=== PATIENT | male | born 1935 | race Caucasian/White ===

== ENCOUNTER 2020-07-05 13:46 | Emergency (ER) | payer MEDICARE, OTHER, SELFPAY ==
[2020-07-05] VITALS (7 sets, daily range): BP systolic 89–114; BP diastolic 43–67; PULSE 36–48; RESP 12–16; TEMP 36.3; O2SAT 98–100
--- NOTE | ~2020-07-05 | CT_ITS ---
EXAMINATION: CT brain wo con EXAM DATE: 07/05/2020 14:42 INDICATION: Shortness of breath, lightheadedness. Bradycardia. Left-sided hemiparesis, temporary. R esolved. TECHNIQUE: Spiral CT of the head was performed without contrast. Axial, coronal and sagittal images were reviewed. The dose-length product (DLP) for this examination was 605.33 mGy-cm. The exposure w as tailored according to patient size, and iterative reconstruction (ASIR) was used as additional dos e reduction technique. There is no prior study for comparison. FINDINGS: There is no acute intraparenchymal hemorrhage. No evidence of intraparenchymal brain mass lesion. No evidence of acute infarction. Please note that initial head CT has limited sensitivity f or small or acute infarctions. There is mild periventricular and subcortical hypodensity, nonspecific but probably related to small vessel ischemic disease. There is moderate prominence of the sulci a nd ventricles related to cerebral atrophy. There is intracranial carotid arteriosclerosis. There a re no extra-axial collections. There is no mass effect or midline shift. The orbits are unremarkabl e. Soft tissue is unremarkable. The visualized sinuses and mastoid air cells are well aerated. IMPRESSION: 1. No acute intracranial findings. 2. Chronic age related findings. Reviewed, dictated and finalized at location A.
--- NOTE | ~2020-07-05 | XR_ITS ---
EXAMINATION: XR chest 2V 07/05/2020 14:46 INDICATION: Slow heart rate. Shortness of breath. PROCEDURE: 2 view chest COMPARISON: No prior studies for comparison. FINDINGS: The lungs are clear. The cardiomediastinal silhouette is within normal limits. There are no pleural effusions. There is no pneumothorax suspected. There is scoliosis. IMPRESSION: 1: NO ACUTE CARDIOPULMONARY DISEASE. Reviewed, dictated and finalized at location B.
--- NOTE | 2020-07-05 14:03 | ED.WEAKNESS ---
HPI - Weakness General Chief complaint: Arrhythmia/Palpitations Stated complaint: light headed low heart rate Time Seen by Provider: 07/05/20 13:55 Source: patient and family Mode of arrival: ambulatory Limitations: no limitations History of Present Illness HPI Narrative: 84-year-old man comes in today complaining of left-sided weakness that was present on waking up this morning, but has since resolved. He noticed that he has also been weak overall, having a low heart rate, and short of breath. For a week before that he has been waking up sweaty. He denies chest pain or pressure, syncope, nausea, vomiting, abdominal pain, cough, or cold symptoms. He denies previous cardiac disease and has not had previous similar symptoms. MD Complaint: generalized weakness and focal weakness Onset (ago): hour(s) (Since this morning) Duration: constant Location: LUE and LLE Migration: none Severity: mild Exacerbating factors: exertion Associated symptoms: confusion and shortness of breath Related Data Home Medications Medication Instructions Recorded Confirmed simvastatin 20 mg PO DAILY 07/05/20 07/05/20 Allergies Allergy/AdvReac Type Severity Reaction Status Date / Time No Known Allergies Allergy Verified 07/05/20 14:12 Review of Systems Constitutional: Constitutional: Denies chills and Denies fever(s) Eyes: Eyes: Denies change in vision and Denies photophobia ENT: Denies dysphagia, Denies nasal congestion and Denies sore throat Cardiovascular: Cardiovascular: Denies chest pain and Denies radiating jaw, neck or arm pain Respiratory: Respiratory: Reports as per HPI, Denies cough, Reports dyspnea and Denies wheezing Gastrointestinal: Gastrointestinal: Denies abdominal pain, Denies nausea and Denies vomiting Genitourinary: Genitourinary: Denies dysuria and Denies urinary frequency Musculoskeletal: Musculoskeletal: Denies arthralgias and Denies joint swelling Integumentary/Breasts: Skin/Breast: Denies pruritus, Denies erythema and Denies rash Neurologic: Reports as per HPI, Denies vertigo, Reports dizziness and Denies syncope Hematologic/Lymphatic: Hematologic/Lymphatic: Denies easy bleeding and Denies easy bruising Allergic/Immunologic: Allergic/Immunologic: Denies lip swelling and Denies wheezing PMFSH Past Medical History Medical History Prostate cancer Surgical History Surgical History H/O knee surgery H/O prostatectomy Social History Social History (Updated 07/05/20 @ 14:18 by Tiburcio Carter MD) Smoking status: Never smoker Substance use: never Exam Const: General: healthy appearing, no acute distress and alert Other: Oriented to place, person, HENMT: Head: normal to inspection Ears: external ears normal, TM's normal bilaterally and EAC's normal Face and sinus: normal facial exam Mouth: Yes moist mucous membranes Throat: posterior oropharynx normal Eyes: Conjunctivae: conjunctivae normal Pupils: Equal, round and reactive pupils present EOM: EOMs intact bilaterally Neck: Neck: normal visual inspection and no lymphadenopathy Resp: Effort & Inspection: normal respiratory effort and not labored Auscultation: clear to auscultation bilaterally, no rales, no rhonchi and no wheezes Cardio: Rate: bradycardic Rhythm: regular rhythm Heart sounds: no murmurs Skin: General skin exam: normal color, no jaundice and no pallor Rashes: no rashes Neuro: General: patient oriented x3, moves all extremities, no focal motor deficits and CN's II-XI intact bilaterally Speech: normal speech Gait exam (Neuro): Normal gait present Extrem: General: normal to inspection and no clubbing, cyanosis or edema Psych: Appearance: grossly normal and well kempt Mental Status: mental status grossly normal Affect: normal affect Attitude: cooperative Thought content: Yes Normal thought content presen
--- NOTE | 2020-07-05 14:05 | ECG_ITS ---
Measurements Intervals [place] Rate: 39 P: VA: 0 QRS: 18 QRSD: 90 T: 8 QT: 486 QTc: 395 Interpretive Statements SINUS RHYTHM WITH COMPLETE HEART BLOCK AND NONCONDUCTED PAC SLOW JUNCTIONAL ESCAPE RHYTHM BASELINE WANDER- I, II, III, V1-V3 ABNORMAL ECG Electronically Signed On 07-05-2020 14:50:35 CDT by Williams Piña D.O.
[2020-07-05 14:26] LABS: Basophils Absolute Auto 0.03 K/mm3 (0.00-0.10); Basophils Percent Auto 0.5 % (0.0-1.0); Eosinophils Absolute Auto 0.17 K/mm3 (0.02-0.50); Eosinophils Percent Auto 2.9 % (1.0-6.0); Hematocrit 35.7 % (37.0-46.0); Hemoglobin 11.9 g/dL (12.4-15.3); Immature Granulocyte Absolute 0.02 K/mm3 (0.00-0.00); Immature Granulocyte Percent A 0.3 % (0.0-0.0); Lymphocytes Absolute Auto 1.41 K/mm3 (1.10-4.50); Lymphocytes Percent Auto 23.7 % (18.0-42.0); Mean Corpuscular HGB Conc 33.3 g/dL (32.0-36.0); Mean Corpuscular Hemoglobin 31.5 pg (27.0-31.0); Mean Corpuscular Volume 94.4 fL (78.0-102.0); Mean Platelet Volume 10.7 fl (8.7-11.0); Monocytes Absolute Auto 0.51 K/mm3 (0.10-0.90); Monocytes Percent Auto 8.6 % (2.0-11.0); Neutrophils Absolute Auto 3.8 K/mm3 (1.7-7.2); Platelet Count Result 158 K/mm3 (150-420); Red Blood Count 3.78 M/mm3 (4.70-6.10); Red Cell Distribution Width 13.2 % (11.6-14.4)
[2020-07-05 14:41] LABS: BNP 283 pg/mL (0-100)
[2020-07-05 14:49] LABS: INR 1.1; Prothrombin Time 11.4 Seconds (9.64-11.0)
[2020-07-05 14:54] LABS: Alanine Aminotransferase 16 U/L (16-63); Albumin Level 3.2 g/dL (3.4-5.0); Alkaline Phosphatase 100 U/L (46-116); Anion Gap 8 mmol/L (8-16); Aspartate Amino Transferase 15 U/L (15-37); Bilirubin,Total 0.6 mg/dL (0.00-1.00); Blood Urea Nitrogen 21 mg/dL (7-18); Calcium 8.9 mg/dL (8.5-10.1); Carbon Dioxide 26 mmol/L (21-32); Chloride 107 mmol/L (98-108); Estimated CRCL calculation 37 ml/min; Estimated Glomerular Filt Rate 47; Glucose 105 mg/dL (70-99); Magnesium 1.8 mg/dL (1.8-2.4); Osmolality Calculated 295 mOsm/kg (285-295); Potassium 4.1 mmol/L (3.5-5.1); Sodium 141 mmol/L (136-145); Thyroid Stimulating Hormone Reflex 2.38 u/IU/mL (0.36-3.74); Troponin I < 0.02 ng/mL (0.00-0.056)
[2020-07-05 14:56] LABS: D Dimer 1.65 mg/L (0.19-0.50)
[2020-07-05] MEDS: SODIUM CHLORIDE 0.9% IV 1,000 ML 999 ML IV CONT (15:15)
--- NOTE | 2020-07-05 16:49 | PC.NURSE ---
ANTONIO MANAGER BUSINESS CONTINUITY, ANDREW RN, CONTACTED AT 1510 FOR TRANSFER. MANAGER BUSINESS CONTINUITY BUSY AT THIS TIME, AWAITING CALL BACK. 1548 ANTONIO CALL BACK FOR PT INFORMATION. AWAITING CALL BACK FROM HOSPITALIST. 1640 ICU ROOM 12 PROVIDED. 1648 RN ATTEMPTED TO CALL REPORT. BED IS NOT READY, STILL A PT IN THAT ROOM, AND THEN NEEDS TO BE CLEANED. AWAITING CALL BACK.
[2020-07-05 17:36] LABS: Add Urine Microscopic? NO; Appearance Urine Clear (Clear); Bilirubin Urine Negative (Negative); Blood Urine Negative (Negative); Color Urine Yellow (Yellow); Glucose Urine UA Negative (Negative); Ketones Urine Negative (Negative); Leukocyte Esterase Ur Negative LEU/UL (Negative); Nitrate Urine Negative (Negative); Protein Urine Negative (Negative); Specific Grav Ur <= 1.005 (1.010-1.020); Urobilinogen Urine 0.2 mg/dL (0.2-1.0)
== END 2020-07-05 18:20 | disposition short-term general hospital (02) ==
PROVIDERS: Emergency Provider Emergency Medicine; PCP Internal Medicine
DX: I44.2 Atrioventricular block, complete (principal); N17.9 Acute kidney failure, unspecified; D64.9 Anemia, unspecified; R06.02 Shortness of breath
CPT/HCPCS: 36415; 70450; 71046; 80053; 81003; 83735; 83880; 84443; 84484; 85025; 85380; 85610; 85730; 93005; 96360; 99284; 99285; J7030

== ENCOUNTER 2020-07-06 08:30 | Inpatient (IN) | payer MEDICARE, OTHER, SELFPAY ==
[2020-07-05 19:00] VITALS: BMI 29.3
--- NOTE | 2020-07-05 19:00 | ADMGEN ---
This patient, Ludwig Dahl, was admitted to Intensive Care Unit-12. Patient/family oriented to hospital policies and general routines including ID bracelet, bed and alarms, visiting hours, pain management, procedures, bathroom and other care routines, personal items, smoking policy, room service/diet, and visiting hours. Valuables list has been completed. Information on how to activate the Rapid Response Team has been discussed. Patient/Family are encouraged to report perceived risks to care and to ask questions if they do not understand what they are told or what they should do.
[2020-07-05 20:49] VITALS: BP 135/70; PULSE 37; RESP 16; TEMP 37.1; O2SAT 100; O2SAT 98
--- NOTE | 2020-07-05 21:18 | PM.IMHP ---
H&P: HPI History of Present Illness Date/Time: 07/05/20 21:18 Chief complaint: Complete Heart Block Narrative: Date of service: 07/05/2020 Ludwig Dahl is a 84 year old male who is followed by Dr. Rubio. He went to the [place] emergency room today and was found to be in complete heart with heart rate in the 30s to 40s and subsequently transferred to [facility] for further evaluation and treatment. The patient has been previously healthy with no heart disease. He has been having problems with progressive SMITH especially walking up the basement steps for the past week or so. This morning he had some transient left-sided weakness on awakening but that resolved but he felt weak and went to the emergency room, where he was found to have a heart rate of 39, incomplete heart block. He reports feeling a little fuzzy headed today. His blood pressure was stable and he was not in any heart failure. He has been transferred to [facility] ICU. He has had some dizziness the past 2-3 months when he bends and stands but there has been no other dizziness or syncope, no chest pain. He was noted to have a mildly slow heart rate when he was last seen by his PCP and says his heart rate usually was in the 50s to 60s at home. He was treated for hypertension in the past but has not required any medications for 5 years. There is no diabetes, thyroid disease or treatment with beta-blockers. Normally he is very active with no exertional problems. He is ambidextrous. No history of clavicular fracture. Review of Systems Constitutional: Constitutional: Reports lethargy and Reports weakness Eyes: Eyes: Denies blurry vision ENT: Denies nasal congestion Cardiovascular: Cardiovascular: Denies chest pain, Reports diaphoresis (Noted more sweating at night.), Denies pedal edema and Reports lightheadedness Respiratory: Respiratory: Denies chest congestion, Denies cough, Reports dyspnea and Reports dyspnea on exertion Gastrointestinal: Gastrointestinal: Denies abdominal pain and Denies hematochezia Genitourinary: Genitourinary: Denies dysuria Musculoskeletal: Musculoskeletal: Denies back pain and Denies neck pain Integumentary/Breasts: Skin/Breast: Denies rash Neurologic: Reports confusion (Patient felt his thinking was a little fuzzy headed recently) Comments: Some memory problems in the past couple of years. Psychiatric: Psychiatric: Reports no additional psychiatric complaints PMFSH Past Medical History Medical History Hyperlipidemia Prostate cancer Surgical History Surgical History H/O knee surgery H/O prostatectomy Family History Family History Father Blood disease of some type of blood disease, not leukemia. 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 He lives with 2 dogs and some cats. He has a daughter, Tanja; his son was killed in a MVA when a teen. Smoking status: Never smoker Alcohol intake: never Substance use: never Gender identity (if verbalized by the patient): Male Sexual Orientation (if Verbalized by the Patient): Straight or Heterosexual Spiritual care concerns: No Meds Home Medications and Allergies Home Medications Medication Instructions Recorded Confirmed Type aspirin [Aspirin Low Dose] 81 mg PO DAILY 07/05/20 07/05/20 History leuprolide (4 month) [Eligard (4 30 mg SUBCUT ONCE 07/05/20 07/05/20 History month)] simvastatin 20 mg PO DAILY 07/05/20 07/05/20 History lisinopril 20 mg PO DAILY 07/06/20 07/06/20 History Allergies All
[2020-07-05 22:00] VITALS: BP 109/61; PULSE 36; RESP 16; O2SAT 100
[2020-07-06] VITALS (19 sets, daily range): BP systolic 108–157; BP diastolic 57–97; PULSE 35–68; RESP 15–22; TEMP 36.4–36.6; O2SAT 96–100
--- NOTE | ~2020-07-06 | XR_ITS ---
EXAMINATION: XR chest 1V portable DATE: 07/06/2020 15:35 INDICATION: Pacer placement. TECHNIQUE: A single frontal view of the chest was obtained. COMPARISON: Chest 2 views 07/05/2020 FINDINGS: Again seen is eventration of anterior right hemidiaphragm. There is mild atelectasis in the lower lung zones. No pleural effusion or pneumothorax. The heart size is normal. There is a left madhav st wall pacer with leads in the right atrium and right ventricle. IMPRESSION: 1. Mild atelectasis in the lower lung zones. Reviewed, dictated and finalized at location A.
--- NOTE | ~2020-07-06 | XR_ITS ---
XR chest 2V 07/07/2020 07:59 Indication: Postop pacemaker insertion Procedure: AP and lateral view of the chest Comparison: Comparison to multiple prior studies sequentially, with oldest reviewed study dated 07/05. Findings: Sequential pacemaker leads are present, position unchanged. Bibasilar atelectasis. No focal pneumonia, edema, pleural effusion or pneumothorax. Scoliosis. No acute osseous abnormality. Impression: 1: Bibasilar atelectasis. Reviewed, dictated and finalized at location B. Impression: 1: Bibasilar atelectasis.
[2020-07-06 04:54] LABS: Basophils Absolute Auto 0.1 K/mm3 (0.0-0.1); Basophils Percent Auto 0.9 % (0.2-1.2); Eosinophils Absolute Auto 0.2 K/mm3 (0-0.3); Eosinophils Percent Auto 4.2 % (0-4.4); Hematocrit 34.4 % (42.0-52.0); Hemoglobin 11.6 g/dL (14.0-18.0); Immature Granulocyte Absolute 0.01 K/mm3 (0.00-0.031); Immature Granulocyte Percent A 0.2 % (0-0.5); Lymphocytes Absolute Auto 1.69 K/mm3 (0.9-3.2); Lymphocytes Percent Auto 31.1 % (18.3-44.2); Mean Corpuscular HGB Conc 33.7 g/dl (32-36); Mean Corpuscular Hemoglobin 31.1 pg (26-34); Mean Corpuscular Volume 92.2 fl (80-100); Mean Platelet Volume 10.7 fl (7.4-10.4); Monocytes Absolute Auto 0.5 K/mm3 (0.1-0.6); Monocytes Percent Auto 8.5 % (2.6-8.5); Neutrophils Percent Auto 55.1 % (45.5-73.1); Platelet Count Result 146 k/mm3 (150-375); Red Blood Count 3.73 M/mm3 (4.6-6.20); Red Cell Distribution Width 13.3 % (11.5-14.5); White Blood Count 5.4 K/mm3 (4.5-10.0)
[2020-07-06 05:07] LABS: INR 1.2; Prothrombin Time 14.8 Seconds (11.1-14.7)
[2020-07-06 05:14] LABS: Anion Gap 4 mmol/L (8-16); Blood Urea Nitrogen 17 mg/dL (9-20); Calcium 8.6 mg/dL (8.4-10.2); Carbon Dioxide 23 mmol/L (22-30); Chloride 110 mmol/L (98-107); Estimated CRCL calculation 39 ml/min; Estimated Glomerular Filt Rate 58; Glucose 98 mg/dL (75-110); Phosphorus 3.7 mg/dL (2.5-4.5); Potassium 3.9 mmol/L (3.4-5.0); Sodium 137 mmol/L (137-145)
[2020-07-06 05:15] LABS: Partial Thromboplastin Time 28.8 SECONDS (22.3-36.8)
[2020-07-06 06:03] LABS: T4 Thyroxine 9.79 ug/dL (5.53-11.0)
--- NOTE | 2020-07-06 08:00 | ECHO_ITS ---
Patient Info Name: Ludwig Dahl Age: 84 years : 1935 Gender: Male Ht: 67 in Wt: 187 lbs BSA: 2.03 m2 HR: 43 bpm BP: 112 / 71 mmHg Heart Rhythm: Bradycardia Technical Quality: Good Exam Date: 07/06/2020 7:49 AM Exam Location: [facility] Patient Status: Inpatient Admit Date: 07/05/2020 Staff Ordering Physician: Yoel Hogue MD [place] Technician: Vasu Granados, MANDA, RT Attending Provider: Teresa Barry MD Referring Physician: Mykel GRAHAM; Exam Type: CA echo dop color flow w con Study Info Indications I45.9 - Conduction disorder, unspecified Complete two-dimensional, color flow and Doppler transthoracic echocardiogram is performed with contrast to opacify the left ventricle and to improve the deliniation of the left ventricle endocardial borders. Summary 1. The left ventricle is of normal size and thickness with good contractility of all segments with no segmental wall motion abnormalities. The ejection fraction is 60-65%. Diastolic function appears normal. 2. Left atrial chamber dimension is mildly enlarged. 3. There is mild mitral valve regurgitation. 4. Unable to determine pulmonary pressure. 5. There is mild tricuspid valve regurgitation. 6. Bradycardic rhythm. Left Ventricle Left ventricular chamber dimension is normal. Left ventricular systolic function is normal, estimated at 60-65%. There is no increased left ventricular wall thickness. Left ventricular septal wall motion is normal. The left ventricular diastolic function is normal. Right Ventricle Right ventricular chamber dimension is normal. Right ventricular systolic function is normal. Left Atria Left atrial chamber dimension is mildly enlarged. Right Atria Right atrial chamber dimension is normal. Aortic Valve The aortic valve is trileaflet. There is no aortic valve sclerosis. There is no aortic valve stenosis. There is no aortic valve regurgitation. Pulmonic Valve The pulmonic valve is normal. There is no pulmonic valve stenosis. There is trace pulmonic regurgitation. Mitral Valve The mitral valve has normal leaflets. There is no mitral valve stenosis. There is mild mitral valve regurgitation. Tricuspid Valve The tricuspid valve leaflets are normal. There is no significant tricuspid valve stenosis. There is mild tricuspid valve regurgitation. No pulmonary hypertension, estimated pulmonary arterial systolic pressure is Empty. Pericardium/Pleural The pericardium appears normal. There is no pericardial effusion. Inferior Vena Cava Not well visualized inferior vena cava with >50% collapse upon inspiration consistent with Empty right atrial pressure, Empty. Aorta The aortic root size at the sinus of Valsalva is normal. The prox ascending aorta size is normal. Left Ventricular Outflow Tract Name Value Normal LVOT 2D LVOT Diameter 2.12 cm LVOT Doppler LVOT Peak Gradient 4 mmHg LVOT Mean Gradient 1 mmHg LVOT VTI 22.27 cm LVOT VTI/AV VTI Ratio 0.86
[2020-07-06] MEDS: PERFLUTREN LIPID MICROSPHERES 1.5 ML VIAL DILUTED TO 10 ML TOTAL VOLUME IV PUSH (08:40)
[2020-07-06] MEDS: ASPIRIN 81 MG ENTERIC TABLET PO (09:12)
[2020-07-06] MEDS: SIMVASTATIN 20 MG TABLET PO (09:12)
--- NOTE | 2020-07-06 10:39 | WPDCNINT ---
Assessment and Plan Assessment and plan (1) CHB (complete heart block): Code(s): I44.2 - Atrioventricular block, complete Status: Inactive Assessment and Plan: blood pressure adequate and patient asymptomatic at this time EKG reviewed. troponin negative. thyroid function is normal. And not on any beta-patrick or calcium channel patrick echocardiogram done this morning patient will be going for permanent pacemaker placement continue ICU telemetry monitoring until then NPO (2) Hyperlipidemia: Code(s): E78.5 - Hyperlipidemia, unspecified Status: Acute Assessment and Plan: continue simvastatin (3) DVT prophylaxis: Code(s): Z29.9 - Encounter for prophylactic measures, unspecified Status: Acute Assessment and Plan: SCDs [place] Consult Note Consult date: 07/06/20 Time Seen: 07:00 HPI: Ludwig Dahl is a 84 year old male who presented yesterday to ER with chief complaint of shortness of breath, weakness. Patient yesterday and noticed after cleaning at his home that he was weak in his left lower extremity which only lasted few seconds after that he had mild headache and felt weak all over his body. He noticed shortness of breath while climbing stairs moving around the eyes. He went to ED but but the symptoms had resolved by then apart from the weakness and dyspnea on exertion. In ER he was found to be in complete heart block with adequate blood pressure. Patient was transferred to [facility] for further management. he did notice that his heart rate was in 40s few weeks ago but he did not had any complaints hence did not seek any medical attention for it. Patient denied any chest pain, syncope, loss of conscious, paresthesias. He denies any weakness in any particular arm or leg at this time. No change in sensation of smell or taste recently. No fever. Patient denies fever, chest pain, shortness of breath, cough, nausea vomiting, abdominal pain, diarrhea, headache or constipation. No hematochezia or melena. Review of system is positive for chronic neck pain for which he does not take any pain medication but mostly does massage and heart water shower. Review of Systems Review of Systems: All systems reviewed & are unremarkable except as noted in HPI and below (HPI) PMFSH Past Medical History Medical History Hyperlipidemia Prostate cancer Surgical History Surgical History H/O knee surgery H/O prostatectomy Family History Family History Father Blood disease of some type of blood disease, not leukemia. 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 He lives with 2 dogs and some cats. Smoking status: Never smoker Alcohol intake: never Substance use: never Gender identity (if verbalized by the patient): Male Sexual Orientation (if Verbalized by the Patient): Straight or Heterosexual Spiritual care concerns: No Meds Home Medications and Allergies Home Medications Medication Instructions Recorded Confirmed Type aspirin [Aspirin Low Dose] 81 mg PO DAILY 07/05/20 07/05/20 History leuprolide (4 month) [Eligard (4 30 mg SUBCUT ONCE 07/05/20 07/05/20 History month)] simvastatin 20 mg PO DAILY 07/05/20 07/05/20 History Allergies Allergy/AdvReac Type Severity Reaction Status Date / Time No Known Allergies Allergy Verified 07/05/20 14:12 Vital Signs Vital Signs - 24 hr 07/05/20 20:49 07/05/20 22:00 07/06/20 00:00 Temperature 37.1 C Pulse Rate 37 L 36 L 36 L Re
--- NOTE | 2020-07-06 12:00 | WPDMODSED ---
Moderate Sedation Note-Pt Data Patient Data Diagnosis: Symptomatic complete heart block Present Complaint: SMITH secondary to complete heart block and bradycardia Procedure to be performed/Plan: Venogram Conscious sedation Placement of a permanent dual-chamber pacemaker Allergies Allergy/AdvReac Type Severity Reaction Status Date / Time No Known Allergies Allergy Verified 07/05/20 14:12 Home Medications Medication Instructions Recorded Confirmed Type aspirin [Aspirin Low Dose] 81 mg PO DAILY 07/05/20 07/05/20 History leuprolide (4 month) [Eligard (4 30 mg SUBCUT ONCE 07/05/20 07/05/20 History month)] simvastatin 20 mg PO DAILY 07/05/20 07/05/20 History lisinopril 20 mg PO DAILY 07/06/20 07/06/20 History Current Medications: Active Medications Aspirin (Aspirin Ec) 81 mg PO [facility] Last Admin: 07/06/20 09:12 Dose: 81 mg Documented by: Cefazolin Sodium (Ancef 1 Gm/D5w 50 Ml Pm) 1 gm in 50 mls @ 100 mls/hr IVPB ONCE ONE Stop: 07/06/20 12:59 Simvastatin (Zocor) 20 mg PO [facility] Last Admin: 07/06/20 09:12 Dose: 20 mg Documented by: Sedation/Anesthesia: No previous sedation/anesthesia problems (including family history). [facility] Past Medical History Medical History Hyperlipidemia Prostate cancer Surgical History Surgical History H/O knee surgery H/O prostatectomy Family History Family History Father Blood disease of some type of blood disease, not leukemia. 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 He lives with 2 dogs and some cats. He has a daughter, Tanja; his son was killed in a MVA when a teen. Smoking status: Never smoker Alcohol intake: never Substance use: never Gender identity (if verbalized by the patient): Male Sexual Orientation (if Verbalized by the Patient): Straight or Heterosexual Spiritual care concerns: No Mod Sed Physical Exam Physical Exam Pre Procedural Exam: Normal: Appearance, Eyes, Ears, Nose, Neck, Throat, Airway, Lungs, Heart Size, Heart Rhythm, Neuro Exam, Abdomen, Liver, Extremities and Skin (Skin over pectoral areas intact) and Variation: Heart Rate (bradycardic) Hours since solid foods: 12 Hours since liquid intake: 12 Internal Medicine - PN: Obj Da Vital Signs Vital Signs: Vital Signs - 24 hr 07/05/20 20:49 07/05/20 22:00 07/06/20 00:00 Temperature 98.7 F Pulse Rate 37 L 36 L 36 L Respiratory Rate 16 16 17 Blood Pressure 135/70 109/61 119/74 Pulse Oximetry 98 100 97 07/06/20 02:00 07/06/20 04:00 07/06/20 08:00 Temperature 97.8 F 97.6 F Pulse Rate 36 L 35 L 40 L Respiratory Rate 15 16 22 H Blood Pressure 113/68 112/71 130/73 Pulse Oximetry 99 100 98 07/06/20 10:00 Temperature Pulse Rate 36 L Respiratory Rate 20 Blood Pressure 108/97 H Pulse Oximetry 99 Meds/Results Medications: Active Medications Generic Name Dose Route Start Last Admin Trade Name Eleazar PRN Reason Stop Dose Admin Aspirin 81 mg 07/06/20 09:00 07/06/20 09:12 Aspirin Ec PO 81 mg QAM ANUJA Administration Cefazolin Sodium 1 gm in 50 mls @ 100 mls/hr 07/06/20 12:30 Ancef 1 Gm/D5w 50 Ml Pm IVPB 07/06/20 12:59 ONCE ONE Simvastatin 20 mg 07/06/20 09:00 07/06/20 09:12 Zocor PO 20 mg QAM ANUJA Administration Labs CBC & Chem 7: 07/06/20 04:47 07/06/20 04:47 Labs: Laboratory Results - last 24 hr 07/06/20 07/06/20 07/06/20 04:45 04:47 04:47 WBC 5.4 RBC 3.73 L Hgb 11.6 L Hct 34.4 L MCV 92.2 MCH 31.1 MCH
--- NOTE | 2020-07-06 12:03 | WPDHPUPDATE1 ---
History and Physical Update Update Date/Time: 07/06/20 12:03 History and Physical has been reviewed, including an updated exam of the patient. There are NO changes in the patient's condition. Risks, benefits, and alternatives have been discussed and questions answered. Patient agrees to proceed with procedure.
--- NOTE | 2020-07-06 15:13 | PM.OP ---
Procedure Note - Brief Procedure Note - Brief Date of procedure: 07/06/20 Pre-op diagnosis: Complete Heart Block Symptomatic complete heart Post-op diagnosis: same Procedure performed: conscious sedation Venogram Placement of a permanent dual-chamber transvenous pacemaker Description of procedure: uneventful implant of a dual-chamber pacemaker Anesthesia: local ( with conscious sedation) Surgeon: Teresa Barry MD
--- NOTE | 2020-07-06 15:14 | PM.PROC ---
Procedure Note - Detailed Date of procedure: 07/06/20 Pre-op diagnosis: Complete Heart Block Post-op diagnosis: same Description of procedure: PROCEDURE PERFORMED: Conscious sedation Venogram Placement of a permanent dual-chamber pacemaker SITE: Left prepectoral area MEDICATIONS GIVEN IN SCIENTIFIC EDITOR: Ancef 1 gram IV piggyback CONSCIOUS SEDATION: Assessment: The patient has no history of anesthesia problems. The patient's oropharynx is clear. The patient was deemed to be a good candidate for conscious sedation. The patient had continuous hemodynamic monitoring during the procedure. Start time: 1404 Completion time: 1502 Total conscious sedation time: 58 minutes Medications: Versed 2 mg, fentanyl 50 mcg IV push Trained observer: Jamison Frank RN Outcome: The patient tolerated the procedure well with no complications. PROCEDURE: After informed consent , the patient was brought to the laboratory manager and the left prepectoral area was prepped and draped in usual fashion . The patient received preop antibiotic and conscious sedation . A venogram was performed showing the left subclavian vein anatomy and that it was patent. The left prepectoral area was anesthetized with lidocaine . Next a skin incision was made and carried down to the prepectoral fascia. Hemostasis was obtained using electrocautery . The pacer pocket was formed. The left subclavian vein was easily accessed with the micropuncture technique and a wire was passed into the superior vena cava. A second wire was passed in the same fashion. Both wires were replaced with long wires which were passed into the inferior vena cava using the Seldinger technique. A 7 Moroccan Moroccan safety sheath was passed over the lateral wire, the wire withdrawn, and the right ventricular lead was passed into the inferior vena cava under fluoroscopic guidance . The lead was then prolapsed through the tricuspid valve and advanced into the right ventricular apex. When suitable sensing and pacing thresholds were obtained, it was screwed into place. No extra cardiac stimulation was obtained using 10 volts. The sheath was withdrawn. Next, another 7 Moroccan safety sheath was passed over the more medial wire, the wire withdrawn, and the right atrial lead was passed into the inferior vena cava under fluoroscopic guidance. Right atrial lead was then pulled back to the level of the right atrium and manipulated into the right atrial appendage . When suitable sensing and pacing thresholds were obtained , it was screwed into place . No extra cardiac stimulation was obtained using 10 volts. The sheath was withdrawn. Both leads were secured to the prepectoral fascia using 2-0 silk over their respective sleeves. The pocket was cleansed with antibiotic containing solution . The pulse generator was introduced into the operative field, and both leads were secured into the generator . A gentle tug showed the leads were securely fastened. The device was introduced into the pocket. The subcutaneous tissues were closed in a double layer fashion with interrupted sutures, using 2-0 Vicryl suture , and the skin was closed in a continuous fashion using 4-0 Vicryl suture in a continuous fashion. The area was cleansed, and an Aquacel dressing was applied . The patient tolerated the procedure well with no complications. PACEMAKER INFORMATION: Pulse generator: Medtronic Lily XT DR MRI SureScan model # [id number] Serial # [id number] Right atrial lead: Medtronic 5076-52, Serial # [id number] Right ventricular lead: Medtronic 5076-58, Serial # [id number] MEASURED DATA: Right atrial:P wave sensing 2.8 mV, impedance 380 Ohms, threshold 0.75 V at 0.4 msec Right ventricular lead: R wave sensing 8.1 mV, impedance 722 Ohms, threshold 0.5 V at 0.4 msec. PROGRAMMING; [id number]
--- NOTE | 2020-07-06 15:16 | ECG_ITS ---
Measurements Intervals [place] Rate: 61 P: 241 WV: 173 QRS: -68 QRSD: 181 T: 82 QT: 490 QTc: 497 Interpretive Statements ELECTRONIC ATRIAL PACEMAKER WITH INHIBITION ELECTRONIC VENTRICULAR PACEMAKER NO FURTHER INTERPRETATION IS POSSIBLE ATYPICAL ECG Electronically Signed On 07-06-2020 15:46:04 CDT by Williams Piña D.O.
--- NOTE | 2020-07-06 15:20 | SUR.PHASEII ---
BEGIN PHASE II RECOVERY. RETURNS TO [facility]GRAM[facility] 5 VIA BED S/P PPM INSERTION W/ DR. BENDER. AWAKE AND ALERT ON ARRIVAL. DENIES PAIN OR SOB. MONITOR AV PACED. AQUALCELL DRESSING TO L. UPPER CHEST C/D/I. SITE WITHOUT EDEMA, REDNESS OR TENDERNESS. NO DRAINAGE NOTED. L. RADIAL PULSE STRONG; REPORTS SENSATION AND MOVEMENT L. HAND WNL. POST PPM EKG COMPLETED. REVIEWED MOVEMENT LIMITATION TO L. ARM POST PPM AND BEDREST ORDER. VOICED UNDERSTANDING. VSS. POST PCXR ORDERED. WILL CONTINUE TO MONITOR.
--- NOTE | 2020-07-06 15:52 | PC.NURSE ---
1545-Report called to Lauren VANCE in [facility]. Patient IMU status and will stay in [facility] Room 5 as an overflow. Family at the bedside and aware of the transfer.
--- NOTE | 2020-07-06 16:20 | SUR.PHASEII ---
END PHASE II RECOVERY. PT. NOW TO REMAIN IN [facility] 5 IMU OF. INSTEAD OF RETURNING TO ICU 12 IMU OF. PT AND DAUGHTER INFORMED OF SUCH AND REPORT OBTAINED FROM DIANE Ayers RN. IN ICU. SLING IS NOW ON L. ARM AND ELBOW SUPPORTED BY PILLOW. DENIES PAIN TO L UPPER CHEST. NO CHANGE IN L. UPPER CHEST DRESSING SITE. MONITOR AV PACED. VSS. WILL CONTINUE TO MONITOR. SEE PCS FOR FURTHER DOCUMENTATION.
--- NOTE | 2020-07-06 16:21 | PC.NURSE ---
RETURNS TO IMU STATUS IN [facility] COACH 5 AT THIS TIME. PHASE II RECOVERY POST PPM INSERTION COMPLETE.
[2020-07-06] MEDS: ceFAZolin 2 GM/D5W 50 ML 2 GM/50 ML BAG IVPB (20:50)
[2020-07-07] VITALS: BP 131/80; PULSE 60; RESP 20; TEMP 36.3; O2SAT 100
[2020-07-07] MEDS: traMADol HCL (*CRX) 50 MG TABLET PO (00:19)
[2020-07-07 02:00] VITALS: PULSE 60
[2020-07-07 04:00] VITALS: BP 148/92; PULSE 60; PULSE 63; RESP 17; TEMP 36.1; O2SAT 98
[2020-07-07] MEDS: ceFAZolin 2 GM/D5W 50 ML 2 GM/50 ML BAG IVPB (04:25)
[2020-07-07 05:49] VITALS: PULSE 62
[2020-07-07 08:00] VITALS: BP 135/82; PULSE 61; RESP 14; O2SAT 98
[2020-07-07] MEDS: lisinopriL 20 MG TABLET PO (08:31)
[2020-07-07] MEDS: SIMVASTATIN 20 MG TABLET PO (08:31)
[2020-07-07] MEDS: ASPIRIN 81 MG ENTERIC TABLET PO (08:31)
[2020-07-07 10:00] VITALS: PULSE 60
--- NOTE | 2020-07-07 10:58 | PM.DS ---
DS: Admitting Diagnosis Admitting Diagnosis Admitting Diagnosis: Complete Heart Block DS: Discharge Diagnosis Discharge Diagnosis (1) CHB (complete heart block): Code(s): I44.2 - Atrioventricular block, complete Status: Inactive Assessment and Plan: Status post Medtronic dual-chamber pacemaker 07/06/2020. Pacemaker is functioning normally on interrogation this morning. Unable to elicit any hiccups with testing. Chest x-ray without pneumothorax. No chest discomfort, shortness of breath lightheadedness or dizziness. (2) Acute renal failure: Qualifiers: Acute renal failure type: unspecified Qualified Code(s): N17.9 - Acute kidney failure, unspecified Code(s): N17.9 - Acute kidney failure, unspecified Status: Inactive Assessment and Plan: Creatinine a little elevated perhaps due to poor cardiac output. Creatinine 1.4 BUN 21 at [place]. Ceatinine1.2 BUN 17 07/06 DS: Summary Hospital Course Reason for hospitalization: Complete heart block Hospital Course: 84 year old male who went to the [place] emergency room on 07/05/2020 for evaluation of transient left-sided weakness that resolved, feeling of weakness and was found to be in complete heart with heart rate in the 30s to 40s. He was subsequently transferred to [facility] for further evaluation and treatment. He was hemodynamically stable. Echocardiogram 07/06/2020:The left ventricle is of normal size and thickness with good contractility of all segments with no segmental wall motion abnormalities. The ejection fraction is 60-65%. Diastolic function appears normal. Left atrial chamber dimension is mildly enlarged. There is mild mitral valve regurgitation. Unable to determine pulmonary pressure. There is mild tricuspid valve regurgitation. He had a Medtronic dual chamber pacemaker placed by Dr Barry. No pneumothorax on postoperative chest x-ray. He was monitored overnight. There was some concern due to his frequent hiccups however on device interrogation this morning these could not be elicited. Chest x-ray this morning revealed no pneumothorax. Left subclavian Aquacel dressing intact with no drainage or swelling. He was discharged home in stable and pain-free condition. Status at Discharge Functional status at discharge: independent ambulation Overall status at discharge: patient is progressing back to baseline Time Spent with Patient Time attestation: Total time spent providing and/or coordinating discharge services: 40 minutes. 20 minutes in the room to answer questions and give instructions, 10 minutes to complete discharge order and 10 minutes to complete discharge summary Time spent: Greater than 30 minutes Exam Narrative: Exam Narrative: Pleasant older male, alert,no distress laying in bed. Const: General: no acute distress; No confusion Nutritional Appearance: well nourished Orientation/consciousness: No confusion Limitations: physical limitations ( Limitations of the left arm) HENMT: Mouth: Yes moist mucous membranes Eyes: EOM: EOMs intact bilaterally Neck: Neck: supple and no JVD Resp: Effort & Inspection: normal respiratory effort Auscultation: clear to auscultation bilaterally Cardio: Rate: regular rate Rhythm: regular rhythm Peripheral pulses: Peripheral pulses 2+ throughout Other: Pedal pulses are intact GI: Inspection: non-distended Other: No hepatosplenomegaly Skin: General skin exam: no rashes or lesions noted Neuro: General: patient oriented x3 Speech: normal speech Motor exam (neuro): Normal motor muscle tone present throughout Extrem: General: no edema Psych: Appearance: grossly normal Mental Status: mental status grossly normal Speech and movement: Normal speech and movement present Affect: normal affect Attitude: cooperative Thought process: Normal thought process present Thought content: Yes Normal thoug
--- NOTE | 2020-07-07 12:56 | PC.NURSE ---
1200-pt given D/C orders and instructions. Questions answered and verbalized understanding. AOx4. PIV removed intact. Dressing dry and no evidence of bleeding noted. Taken via wheelchair to waiting vehicle. No evidence of distress noted or verbalized at time of departure.
== END 2020-07-07 12:00 | disposition home or self-care (01) | DRG 243 ==
LOC: ANHICU 11:49 → ANHCPC 19:49 → ANHICU 07-12 09:51
PROVIDERS: Internal Medicine Cardiovascular Disease; Admitting Provider Internal Medicine Cardiovascular Disease; PCP Internal Medicine; Visit Provider Nurse Practitioner Adult Health
PROC: 0JH606Z Insertion of Pacemaker, Dual Chamber into Chest Subcutaneous Tissue and Fascia, Open Approach (ICD-10-PCS; CPT 33208; principal; 2020-07-06 13:00)
DX: I44.2 Atrioventricular block, complete (principal); N17.9 Acute kidney failure, unspecified; E78.5 Hyperlipidemia, unspecified; Z85.46 Personal history of malignant neoplasm of prostate
CPT/HCPCS: 33208; 36415; 71045; 71046; 80048; 83735; 84100; 84436; 84443; 85025; 85610; 85730; 93005; 93306; A9270; C1779; C1785; C8929; J0690; J2250; J3010; J7040; Q9957

== ENCOUNTER 2020-09-06 12:56 | Emergency (ER) | payer MEDICARE, OTHER, SELFPAY ==
[2020-09-06] VITALS (8 sets, daily range): BP systolic 82–130; BP diastolic 51–79; PULSE 63–88; RESP 18–20; TEMP 36.4–36.6; O2SAT 98–100
--- NOTE | ~2020-09-06 | CT_ITS ---
EXAMINATION: CTA chest PE protocol EXAM DATE: 09/06/2020 15:36 INDICATION: Syncope. Elevated d-dimer. Pacemaker placed one month ago. TECHNIQUE: Spiral CTA of the chest (pulmonary arteries) was performed with 100 cc Omnipaque 350 intr avenous contrast injection. Images were acquired during the pulmonary arterial phase. Coronal maxi mum intensity projection 3D-reconstructions were created by the technologist on dedicated workstation . Axial, coronal and sagittal reformatted images were reviewed. The dose-length product (DLP) for t his examination was 532.11 mGy-cm. The exposure was tailored according to patient size (auto mA exp osure control), and iterative reconstruction (ASIR) was used as additional dose reduction technique. There is no prior study for comparison. FINDINGS: Pulmonary arteries are well opacified and without intraluminal filling defects. No thora cic aortic dissection. There is right lower lobe 7 mm nodule, likely postinfectious but 6 month foll ow-up low-dose chest CT is recommended. There are some right pleural plaques, could be from prior emp yema given that its unilateral, localized to posterior medial location. There are no pleural or bj cardial effusions. Tracheobronchial tree is patent. There is no mediastinal, hilar or axillary ly mphadenopathy. There is no pneumothorax. Dual lead pacemaker/AICD device. The aortic root measures 4 cm in diameter, mildly dilated. Heart normal in size. There is mild coronary arterial calcificati on, arterial sclerosis. There is a 2.5 cm gallstone. Small hiatal hernia. Mild to moderate compress ion fracture midthoracic level, chronic. Moderate lower thoracic disc disease. There are no osteoblas tic or osteolytic lesions identified. IMPRESSION: 1. No pulmonary emboli or acute cardiopulmonary findings. 2. Right lower lobe nodule most likely postinfectious but recommend 6 month follow-up low-dose chest CT. 3. Chronic findings. Reviewed, dictated and finalized at location A. TESTER IMPRESSION: 1. No pulmonary emboli or acute cardiopulmonary findings. 2. Right lower lobe nodule most likely postinfectious but recommend 6 month fo llow-up low-dose chest CT. 3. Chronic findings.
--- NOTE | ~2020-09-06 | XR_ITS ---
EXAMINATION: XR chest 2V DATE: 09/06/2020 14:34 INDICATION: Syncope. TECHNIQUE: Frontal and lateral views of the chest were obtained on 3 radiographs. COMPARISON: Chest 2 views 07/07/2020 FINDINGS: There is eventration of anterior right hemidiaphragm. No pneumonia, pleural effusion, or pn eumothorax. The heart size is normal. There is a left chest wall pacer with leads in the right atrium and right ventricle. There is mild chronic anterior wedging of multiple vertebral bodies near the th oracolumbar junction. IMPRESSION: 1. No acute cardiopulmonary disease. Reviewed, dictated and finalized at location A. FIRE CHARGER OPERATOR
--- NOTE | 2020-09-06 13:39 | ECG_ITS ---
Measurements Intervals [place] Rate: 62 P: 33 CO: 163 QRS: -4 QRSD: 120 T: 14 QT: 415 QTc: 422 Interpretive Statements ELECTRONIC ATRIAL PACEMAKER WITH INHIBITION RIGHT BUNDLE BRANCH BLOCK BASELINE ARTIFACT- V1-V2 ABNORMAL ECG Electronically Signed On 09-06-2020 16:07:10 LOW PRESSURE BOILER OPERATOR by Williams Piña D.O.
[2020-09-06 14:26] LABS: Basophils Absolute Auto 0.05 K/mm3 (0.00-0.10); Basophils Percent Auto 0.8 % (0.0-1.0); Eosinophils Absolute Auto 0.27 K/mm3 (0.02-0.50); Eosinophils Percent Auto 4.2 % (1.0-6.0); Hematocrit 39.4 % (37.0-46.0); Hemoglobin 13.3 g/dL (12.4-15.3); Immature Granulocyte Absolute 0.03 K/mm3 (0.00-0.00); Immature Granulocyte Percent A 0.5 % (0.0-0.0); Lymphocytes Absolute Auto 1.58 K/mm3 (1.10-4.50); Lymphocytes Percent Auto 24.8 % (18.0-42.0); Mean Corpuscular HGB Conc 33.8 g/dL (32.0-36.0); Mean Corpuscular Hemoglobin 31.4 pg (27.0-31.0); Mean Corpuscular Volume 92.9 fL (78.0-102.0); Mean Platelet Volume 10.5 fl (8.7-11.0); Monocytes Absolute Auto 0.56 K/mm3 (0.10-0.90); Monocytes Percent Auto 8.8 % (2.0-11.0); Neutrophils Absolute Auto 3.9 K/mm3 (1.7-7.2); Neutrophils Percent Auto 60.9 % (50.0-70.0); Platelet Count Result 174 K/mm3 (150-420); Red Blood Count 4.24 M/mm3 (4.70-6.10); Red Cell Distribution Width 12.9 % (11.6-14.4); White Blood Count 6.4 K/mm3 (4.8-10.8)
[2020-09-06 14:42] LABS: BNP 44.9 pg/mL (0-100)
[2020-09-06 14:53] LABS: Alanine Aminotransferase 18 U/L (16-63); Albumin Level 3.6 g/dL (3.4-5.0); Alkaline Phosphatase 110 U/L (46-116); Anion Gap 7 mmol/L (8-16); Aspartate Amino Transferase 17 U/L (15-37); Bilirubin,Total 0.7 mg/dL (0.00-1.00); Blood Urea Nitrogen 24 mg/dL (7-18); Calcium 9.7 mg/dL (8.5-10.1); Carbon Dioxide 27 mmol/L (21-32); Chloride 104 mmol/L (98-108); Estimated CRCL calculation 31 ml/min; Estimated Glomerular Filt Rate 46; Glucose 98 mg/dL (70-99); Osmolality Calculated 290 mOsm/kg (285-295); Potassium 4.1 mmol/L (3.5-5.1); Sodium 138 mmol/L (136-145); Total Protein 7.5 g/dL (6.4-8.2)
[2020-09-06 14:56] LABS: Troponin I < 0.02 ng/mL (0.00-0.056)
[2020-09-06] MEDS: MAG HYDROX/ALUMINUM HYD/SIMETH 30 ML, PHENobarb/HYOSCY/ATROPINE/SCOP 32.4 MG, LIDOCAINE... PO (17:10)
--- NOTE | 2020-09-06 17:37 | ED.SYNCOPE ---
HPI - Syncope General Chief Complaint: Syncope Stated Complaint: dizzy fell bp up and down Time Seen by Provider: 09/06/20 13:45 Source: patient and family Mode of arrival: ambulatory Limitations: no limitations History of Present Illness complaint: felt faint and almost passed out Onset (ago): minute(s) (30 minutes ago) Duration of episode: 10 -: second(s) Prodromal symptoms: none Witnessed: No Context: at rest Injuries sustained associated with event: none Current symptoms: none History: other (recent pacemaker placement ) Treatments prior to arrival: none Related Data Home Medications Medication Instructions Recorded Confirmed Eligard (4 month) 30 mg SUBCUT ONCE 07/05/20 09/06/20 aspirin [Aspirin Low Dose] 81 mg PO DAILY 07/05/20 09/06/20 simvastatin 20 mg PO DAILY 07/05/20 09/06/20 lisinopril 10 mg PO DAILY 09/06/20 09/06/20 Allergies Allergy/AdvReac Type Severity Reaction Status Date / Time No Known Allergies Allergy Verified 09/06/20 13:45 Review of Systems Review of Systems: Narrative: Patient was in the kitchen this am and had a syncopal episode where he slid down a wall to the floor. He just suddenly became weak and slid down the wall. He estimates that he was out for just seconds. And it is unclear to me as to if this was a true syncopal episode in which he truly lost consciousness, or something less than this. Constitutional: Constitutional: Reports no additional constitutional complaints Eyes: Eyes: Reports no additional eye complaints Cardiovascular: Cardiovascular: Reports no additional cardiovascular complaints Respiratory: Respiratory: Reports no additional respiratory complaints Gastrointestinal: Comments: GERD complaints Genitourinary: Genitourinary: Reports no additional male genitourinary complaints Musculoskeletal: Musculoskeletal: Reports no additional musculoskeletal complaints Integumentary/Breasts: Skin/Breast: Reports system reviewed and no additional complaints, except as docu Neurologic: Reports system reviewed and no additional complaints, except as documented Psychiatric: Psychiatric: Reports no additional psychiatric complaints Endocrine: Endocrine: Reports no additional endocrine complaints Hematologic/Lymphatic: Hematologic/Lymphatic: Reports no additional hematologic/lymphatic complaints Allergic/Immunologic: Allergic/Immunologic: Reports no additional allergic/immunologic complaints PMFSH Past Medical History Medical History (Updated 09/06/20 @ 21:45 by Mikel Montes De Oca MD) Hyperlipidemia Prostate cancer Surgical History Surgical History H/O knee surgery H/O prostatectomy Family History Family History Father Blood disease of some type of blood disease, not leukemia. 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 He lives with 2 dogs and some cats. He has a daughter, Tanja; his son was killed in a MVA when a teen. Smoking status: Never smoker Alcohol intake: never Substance use: never Gender identity (if verbalized by the patient): Male Spiritual care concerns: No Exam Const: General: no acute distress Nutritional Appearance: well nourished Orientation/consciousness: patient oriented x3 HENMT: Head: normal to inspection Ears: TM abnormal Face and sinus: normal facial exam Eyes: Conjunctivae: conjunctivae normal Neck: Neck: normal visual inspection and no lymphadenopathy Chest: Chest palpation & inspection: normal inspection of the chest Resp: Effort & Inspection: normal respiratory effort Auscultation: clear to auscultation bilaterally
--- NOTE | 2020-09-06 19:10 | PC.NURSE ---
Patient admitted to room 208. Able to transfer from wheelchair to bed with no assist. Alert and oriented x3. Vital signs stable. Blood pressure positive for Orthostatic. Patient resting in bed with hob elevated. Provided with call light, belongings and snack. Telemetry monitoring applied per order. Pt. denies further needs.
--- NOTE | 2020-09-06 23:34 | PC.NURSE ---
Contacted Dr. Montes De Oca regarding pt's c/o indigestion; New orders received and noted.
[2020-09-07] MEDS: MAG HYDROX/ALUMINUM HYD/SIMETH 30 ML, PHENobarb/HYOSCY/ATROPINE/SCOP 32.4 MG, LIDOCAINE... PO (00:20)
--- NOTE | 2020-09-07 00:20 | PC.NURSE ---
GI cocktail given per order. Pt states he has had indigestion before & has taken med for this in past & has been off his med for indigestion. Pt denies chest pain or pressure. Telemetry continues SR.
[2020-09-07 00:39] VITALS: BP 112/74; PULSE 60; RESP 20; TEMP 36.6; O2SAT 99
--- NOTE | 2020-09-07 01:11 | PC.NURSE ---
Sleeping, resp even. No signs of discomfort noted.
--- NOTE | 2020-09-07 01:54 | PC.NURSE ---
Sleeping, resp even. No signs of discomfort noted. Telemetry continues SR.
[2020-09-07 03:30] VITALS: BP 138/92; PULSE 88; RESP 20; TEMP 36.4; O2SAT 98
--- NOTE | 2020-09-07 03:30 | PC.NURSE ---
Run of VTach. pacer spike. Pt denies chest pain or pressure. States has heartburn, no NV, color good.. Pt was up walking. Assisted back into bed. converted to SR. Charge nurse notified of this. Physician notified of pt status & VS. 97.6 R 20 P88, 98% on room air with pt lying back into bed.
--- NOTE | 2020-09-07 03:50 | PC.NURSE ---
Notified Dr. Montes De Oca of pt having a run of fully paced monomorphic ventricular tachycardia; He said to 'ignore it'. Pt was found walking in the [place] and c/o bad heartburn but denied c/o chest pain. Pt escorted back to his room and VS were taken: 138/92, 88, 98%, 20 and 97.6. Pt converted quickly back to sinus rhythm.
--- NOTE | 2020-09-07 05:56 | PC.NURSE ---
Sleeping, resp even. Telemetry continues. SR Pulse 60.
[2020-09-07 06:12] LABS: Troponin I < 0.02 ng/mL (0.00-0.056)
[2020-09-07 08:28] VITALS: BP 113/72; PULSE 66; RESP 18; TEMP 36.8; O2SAT 96
--- NOTE | 2020-09-07 10:44 | ECG_ITS ---
Measurements Intervals [place] Rate: 65 P: 26 MN: 167 QRS: 14 QRSD: 120 T: 24 QT: 408 QTc: 426 Interpretive Statements SINUS RHYTHM RIGHT BUNDLE BRANCH BLOCK ABNORMAL ECG Electronically Signed On 09-07-2020 13:17:43 RAT TRAPPER by Williams Piña D.O.
[2020-09-07 10:58] VITALS: BP 143/84; PULSE 90; RESP 20; TEMP 36.5; O2SAT 98
--- NOTE | 2020-09-07 11:30 | PC.NURSE ---
[employer]tronic notified of need for interigation of pacemaker. Surveillance Specialist to call back.
[2020-09-07] MEDS: CALCIUM CARBONATE (TUMS) 500 MG (200 MG ELEMENTAL) PO (15:30)
[2020-09-07 15:43] VITALS: BP 113/73; PULSE 61; RESP 18; TEMP 36.5; O2SAT 98
--- NOTE | 2020-09-07 16:55 | PC.NURSE ---
pt resting in bed, no s/sx of distress, dr parada is on phone with lens matcher
--- NOTE | 2020-09-07 17:20 | PC.NURSE ---
dr parada waiting on callback from cross tie cutter, she wants to look over medtronic pacer documentation, rep has been called and is calling her nurse so she can have access
--- NOTE | 2020-09-07 17:45 | PC.NURSE ---
cross roller is unable to get information from [employer] and will not be back in her office until the morning, pt wishes to go home without results and agrees to come back in if needed, will come up to speak with pt before discharge to go over risks of leaving without results
--- NOTE | 2020-09-07 18:43 | ED.GENADULT ---
HPI - General Adult General Source: patient and family Mode of arrival: ambulatory Limitations: no limitations History of Present Illness HPI narrative: Ludwig is a 85M with a PMH of complete heart block s/p pacemaker placement, HLD and prostate cancer that came into the ED yesterday after an episode of near syncope. He was an ER hold while awaiting a bed at [facility]. Please see Dr. Montes De Oca's note for details. Related Data Home Medications Medication Instructions Recorded Confirmed Eligard (4 month) 30 mg SUBCUT ONCE 07/05/20 09/06/20 aspirin [Aspirin Low Dose] 81 mg PO DAILY 07/05/20 09/06/20 simvastatin 20 mg PO DAILY 07/05/20 09/06/20 lisinopril 10 mg PO DAILY 09/06/20 09/06/20 Allergies Allergy/AdvReac Type Severity Reaction Status Date / Time No Known Allergies Allergy Verified 09/06/20 13:45 Review of Systems Constitutional: Constitutional: Denies chills, Denies fatigue, Denies fever(s) and Denies weakness Cardiovascular: Cardiovascular: Denies chest pain, Denies rapid heart rate and Denies radiating jaw, neck or arm pain Respiratory: Respiratory: Denies cough, Denies dyspnea and Denies wheezing Gastrointestinal: Gastrointestinal: Reports no additional gastrointestinal complaints Genitourinary: Genitourinary: Reports no additional male genitourinary complaints Musculoskeletal: Musculoskeletal: Reports no additional musculoskeletal complaints Integumentary/Breasts: Skin/Breast: Reports system reviewed and no additional complaints, except as docu Neurologic: Reports system reviewed and no additional complaints, except as documented Psychiatric: Psychiatric: Reports no additional psychiatric complaints [facility] Past Medical History Medical History Hyperlipidemia Prostate cancer Surgical History Surgical History H/O knee surgery H/O prostatectomy Family History Family History Father Blood disease of some type of blood disease, not leukemia. 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 He lives with 2 dogs and some cats. He has a daughter, Tanja; his son was killed in a MVA when a teen. Smoking status: Never smoker Alcohol intake: never Substance use: never Gender identity (if verbalized by the patient): Male Spiritual care concerns: No Exam Const: General: no acute distress and alert Orientation/consciousness: patient oriented x3 Limitations: No altered mental status HENMT: Head: normal to inspection Eyes: Conjunctivae: conjunctivae normal Pupils: Equal, round and reactive pupils present Neck: Neck: normal visual inspection Chest: Chest palpation & inspection: normal inspection of the chest Resp: Effort & Inspection: normal respiratory effort Auscultation: clear to auscultation bilaterally Cardio: Rate: regular rate Rhythm: regular rhythm Skin: General skin exam: normal color Rashes: no rashes Neuro: General: moves all extremities Extrem: General: normal to inspection Psych: Mental Status: mental status grossly normal Course Course Emergency Course: Care resumed at 0700. We were waiting for a bed at [facility] when I spoke with Dr. Doyle who requested we get the pacemaker interrogated. There were significant delays in getting this done. However, at approximately 1800 we did get the result of the interrogation. I spoke with Terry, the rep from [employer] (cell# [phone]) who was able to interpret the results. There was no significant arrhythmia per Terry. Further history from [place] revealed that he was si
--- NOTE | 2020-09-07 18:48 | PC.NURSE ---
has been up to speak with pt, walked down with belongings, no s/sx of distress or sob
--- NOTE | 2020-09-07 18:55 | PC.NURSE ---
pt discharged during er hold status.please see med-surg nurses documentation for discharge
== END 2020-09-07 18:56 | disposition home or self-care (01) ==
LOC: CHSED 13:01 → CHS2ND 18:43
PROVIDERS: Emergency Provider Emergency Medicine; PCP Internal Medicine
DX: R55 Syncope and collapse (principal); E78.5 Hyperlipidemia, unspecified; Z85.46 Personal history of malignant neoplasm of prostate
CPT/HCPCS: 36415; 71046; 71275; 80053; 83880; 84484; 85025; 85380; 93005; 99284; A9270; Q9965

== ENCOUNTER 2021-05-12 15:17 | Outpatient (CLI) | payer MEDICARE, OTHER, SELFPAY ==
[2021-05-12 16:23] LABS: Alanine Aminotransferase 17 U/L (16-63); Albumin Level 3.5 g/dL (3.4-5.0); Alkaline Phosphatase 108 U/L (46-116); Anion Gap 9 mmol/L (8-16); Aspartate Amino Transferase 13 U/L (15-37); Bilirubin,Total 0.7 mg/dL (0.00-1.00); Blood Urea Nitrogen 20 mg/dL (7-18); Calcium 9.6 mg/dL (8.5-10.1); Carbon Dioxide 28 mmol/L (21-32); Chloride 107 mmol/L (98-108); Estimated Glomerular Filt Rate 51; Glucose 78 mg/dL (70-99); LDL Cholesterol Direct 60 mg/dL (0-130); Osmolality Calculated 299 mOsm/kg (285-295); Sodium 144 mmol/L (136-145)
[2021-05-12 16:36] LABS: Vitamin B12 > 2000 pg/mL (193-986)
[2021-05-16 13:07] LABS: Vitamin D 25 Hydroxy 30 ng/mL (30-100)
== END 2021-05-12 15:18 | disposition home or self-care (01) ==
LOC: CHSLAB 15:22
PROVIDERS: PCP Internal Medicine; Visit Provider Physician Assistant
DX: E53.8 Deficiency of other specified B group vitamins (principal); I12.9 Hypertensive chronic kidney disease with stage 1 through stage 4 chronic kidney disease, or unspecified chronic kidney disease; N18.2 Chronic kidney disease, stage 2 (mild); E55.9 Vitamin D deficiency, unspecified
CPT/HCPCS: 36415; 80053; 82306; 82607; 83721

== ENCOUNTER 2021-06-25 09:19 | Emergency (ER) | payer MEDICARE, OTHER, SELFPAY ==
[2021-06-25 09:25] VITALS: BP 133/85; PULSE 67; RESP 16; TEMP 37.2; O2SAT 96
--- NOTE | 2021-06-25 09:29 | ED.GENADULT ---
HPI - General Adult General Chief complaint: Unspecified Stated complaint: high BP Time Seen by Provider: 06/25/21 09:29 Source: patient Mode of arrival: ambulatory Limitations: no limitations History of Present Illness HPI narrative: 85 year old man with a history of complete heart block status post pacemaker, hypertension and chronic kidney disease comes to the emergency department concerned about his blood pressure. He checked it in the morning like usual and his systolic number was over 160. He does not recall the lower number. He has had no headache, dizziness, lightheadedness, chest pain, nausea, vomiting or shortness of breath. He last took his lisinopril 2 or 3 days ago at the instruction of his physician. Related Data Home Medications Medication Instructions Recorded Confirmed Eligard (4 month) 30 mg SUBCUT ONCE 07/05/20 09/06/20 aspirin [Aspirin Low Dose] 81 mg PO DAILY 07/05/20 09/06/20 simvastatin 20 mg PO DAILY 07/05/20 09/06/20 Allergies Allergy/AdvReac Type Severity Reaction Status Date / Time No Known Allergies Allergy Verified 09/06/20 13:45 Review of Systems Constitutional: Constitutional: Denies chills, Denies fatigue and Denies fever(s) ENT: Denies dry mouth, Denies nasal congestion and Denies nasal discharge Cardiovascular: Cardiovascular: Denies chest pain, Denies syncope, Denies rapid heart rate and Denies leg edema Respiratory: Respiratory: Denies chest congestion, Denies cough and Denies dyspnea Gastrointestinal: Gastrointestinal: Denies nausea and Denies vomiting Musculoskeletal: Musculoskeletal: Denies arthralgias and Denies joint swelling Comments: Sometimes has neck pain. Integumentary/Breasts: Skin/Breast: Denies pruritus and Denies rash Neurologic: Denies abnormal gait, Denies vertigo, Denies dizziness, Denies syncope and Denies headache(s) Hematologic/Lymphatic: Hematologic/Lymphatic: Denies easy bleeding and Denies easy bruising Allergic/Immunologic: Allergic/Immunologic: Denies urticaria and Denies lip swelling PMFSH Past Medical History Medical History Hyperlipidemia Prostate cancer Surgical History Surgical History H/O knee surgery H/O prostatectomy Family History Family History Father Blood disease of some type of blood disease, not leukemia. 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 He lives with 2 dogs and some cats. He has a daughter, Tanja; his son was killed in a MVA when a teen. Smoking status: Never smoker Alcohol intake: never Substance use: never Gender identity (if verbalized by the patient): Male Sexual Orientation (if Verbalized by the Patient): Straight or Heterosexual Spiritual care concerns: No Exam Const: General: cooperative, healthy appearing, comfortable and no acute distress Nutritional Appearance: average body habitus Orientation/consciousness: patient oriented x3 Limitations: no limitations HENMT: Head: normocephalic and atraumatic Eyes: Pupils: Equal, round and reactive pupils present EOM: EOMs intact bilaterally Resp: Effort & Inspection: normal respiratory effort and able to speak in complete sentences Auscultation: clear to auscultation bilaterally, no rales, no rhonchi and no wheezes Cardio: Jugular venous distension: no JVD Peripheral pulses: Peripheral pulses 2+ throughout Skin: General skin exam: normal color and no rashes or lesions noted Neuro: General: tone normal, moves all extremities and CN's II-XI intact bilaterally Extrem: General
[2021-06-25 09:45] VITALS: BP 122/79
== END 2021-06-25 09:45 | disposition home or self-care (01) ==
PROVIDERS: Emergency Provider Emergency Medicine; PCP Internal Medicine
DX: Z03.89 Encounter for observation for other suspected diseases and conditions ruled out (principal)
CPT/HCPCS: 99281; 99282

== ENCOUNTER 2021-10-16 08:35 | Outpatient (CLI) | payer MEDICARE, OTHER, SELFPAY ==
[2021-10-16 09:02] LABS: Hemoglobin A1C 5.9 % (<5.7)
[2021-10-16 09:51] LABS: Alanine Aminotransferase 16 U/L (16-63); Albumin Level 3.6 g/dL (3.4-5.0); Alkaline Phosphatase 121 U/L (46-116); Anion Gap 9 mmol/L (8-16); Aspartate Amino Transferase 18 U/L (15-37); Bilirubin,Total 0.5 mg/dL (0.00-1.00); Blood Urea Nitrogen 31 mg/dL (7-18); Calcium 8.9 mg/dL (8.5-10.1); Carbon Dioxide 25 mmol/L (21-32); Chloride 107 mmol/L (98-108); Cholesterol 153 mg/dL (0-200); Estimated Glomerular Filt Rate > 60; Glucose 95 mg/dL (70-99); LDL Cholesterol Direct 82 mg/dL (0-130); Osmolality Calculated 298 mOsm/kg (285-295); Potassium 4.5 mmol/L (3.5-5.1); Sodium 141 mmol/L (136-145); Vitamin B12 448 pg/mL (193-986)
[2021-10-19 12:56] LABS: Vitamin D 25 Hydroxy 27 ng/mL (30-100)
== END 2021-10-16 08:36 | disposition home or self-care (01) ==
LOC: CHSLAB 08:38
PROVIDERS: PCP Internal Medicine; Visit Provider Internal Medicine
DX: E55.9 Vitamin D deficiency, unspecified (principal); E53.8 Deficiency of other specified B group vitamins; I12.9 Hypertensive chronic kidney disease with stage 1 through stage 4 chronic kidney disease, or unspecified chronic kidney disease; R73.02 Impaired glucose tolerance (oral)
CPT/HCPCS: 36415; 80053; 82306; 82465; 82607; 83036; 83721

== ENCOUNTER 2022-07-18 09:26 | Outpatient (CLI) | payer MEDICARE, OTHER, SELFPAY ==
[2022-07-18 10:27] LABS: Alanine Aminotransferase 17 U/L (16-63); Albumin Level 3.3 g/dL (3.4-5.0); Alkaline Phosphatase 133 U/L (46-116); Anion Gap 6 mmol/L (8-16); Aspartate Amino Transferase 18 U/L (15-37); Bilirubin,Total 0.6 mg/dL (0.00-1.00); Blood Urea Nitrogen 23 mg/dL (7-18); Calcium 9.2 mg/dL (8.5-10.1); Carbon Dioxide 29 mmol/L (21-32); Chloride 109 mmol/L (98-108); Cholesterol 121 mg/dL (0-200); Estimated Glomerular Filt Rate > 60; Glucose 108 mg/dL (70-99); HDL Direct 52 mg/dL (40-60); LDL Cholesterol Calculated 60 mg/dL (<130); Osmolality Calculated 302 mOsm/kg (285-295); Potassium 4.3 mmol/L (3.5-5.1); Sodium 144 mmol/L (136-145); Triglycerides 47 mg/dL (0-150); Vitamin B12 686 pg/mL (193-986)
[2022-07-21 21:45] LABS: Vitamin D 25 Hydroxy 41 ng/mL (30-100)
== END 2022-07-18 09:27 | disposition home or self-care (01) ==
PROVIDERS: PCP Physician Assistant; Visit Provider Physician Assistant
DX: E78.00 Pure hypercholesterolemia, unspecified (principal); I95.0 Idiopathic hypotension; E55.9 Vitamin D deficiency, unspecified; N18.2 Chronic kidney disease, stage 2 (mild); D64.9 Anemia, unspecified; R73.02 Impaired glucose tolerance (oral); E53.8 Deficiency of other specified B group vitamins
CPT/HCPCS: 36415; 80053; 80061; 82306; 82607

== ENCOUNTER 2022-09-15 03:58 | Emergency (ER) | payer MEDICARE, OTHER, SELFPAY ==
--- NOTE | ~2022-09-15 | CT_ITS ---
EXAMINATION: CT brain wo con DATE: 09/15/2022 05:19 INDICATION: Head trauma from fall. Forehead injury, laceration TECHNIQUE: Computed tomography (CT) of the head was performed without intravenous contrast. The mA wa s adjusted according to patient size. Iterative reconstruction technique was employed. Exam dose: 68 1.00 mGy-cm total exam DLP. COMPARISON: 07/05/2020 CT brain FINDINGS: Vertebral artery and bilateral carotid siphon internal carotid artery calcifications are no sharron. There is nonspecific diminished attenuation of the cerebral white matter, likely due to chronic small vessel ischemic changes. No intracranial mass lesion or hemorrhage is noted. There is chronic encephalomalacia of the anterior left temporal lobe. There is moderately prominent central and cortical cerebral and moderate cerebel lar atrophy. No intracranial mass lesion or hemorrhage, midline shift or mass effect. No subdural or epidural donya sofia is detected. No skull fracture or bone destruction is detected. The paranasal sinuses and mastoid air cells are normally developed and aerated. IMPRESSION: No skull fracture or acute intracranial finding or significant change since 08/04/2020 Reviewed, dictated and finalized at [facility] Reviewed, dictated and finalized at [facility]. 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
--- NOTE | ~2022-09-15 | CT_ITS ---
EXAMINATION: CT cervical spine wo con DATE: 09/15/2022 05:19 INDICATION: Fall. Forehead laceration. Head and neck injury. TECHNIQUE: Computed tomography (CT) of the cervical spine was performed without intravenous contrast. Automated exposure control and iterative reconstruction technique were employed. Exam dose: 426.95 mGy-cm total exam DLP. COMPARISON: None FINDINGS: C1 and C2 are normally aligned and the odontoid process is intact. No fracture or dislocati on or locked facet or prevertebral soft tissue swelling is detected. Moderately severe degenerative disc disease at C2-3, C3-4. Moderate degenerative disc disease at C4-5. Severe degenerative disc disease with prominent posterior spurring at C5-6 and C6-7. Approximately 1. 7 mm anterolisthesis. At C7-T1. There is prominent degenerative change at the apophyseal joints throughout the cervical spine with fu kaci at the left C3-4 apophyseal joint. IMPRESSION: Severe cervical spondylosis; no fracture or dislocation or locked facet Reviewed, dictated and finalized at [facility] Reviewed, dictated and finalized at [facility]. ER OFF
--- NOTE | ~2022-09-15 | CT_ITS ---
EXAMINATION: CT facial bones wo con DATE: 09/15/2022 05:19 INDICATION: Fall. Forehead laceration. Head, facial and neck injuries TECHNIQUE: Computed tomography (CT) of the facial bones and maxillofacial region was performed withou t intravenous contrast. Automated exposure control and iterative reconstruction technique were employ ed. Exam dose: 296.37 mGy-cm total exam DLP. COMPARISON: None. FINDINGS: The frontozygomatic sutures, orbital rims and bob, nasal bones, maxillary bones, zygomati c arches, temporomandibular joints and mandible are intact, without evidence of fracture. Normal development and aeration of the paranasal sinuses and mastoid air cells. Severe cervical spondylosis. IMPRESSION: No facial fracture Reviewed, dictated and finalized at [facility] Reviewed, dictated and finalized at [facility]. SCIENTIST IMPRESSION: No facial fracture
[2022-09-15 04:00] VITALS: BP 149/90; PULSE 78; RESP 18; TEMP 36.4; O2SAT 98
[2022-09-15] MEDS: LIDO 1%/EPINEPHRINE 1:100,000 20 ML VIAL 5 ML INFILTRATE (04:23)
--- NOTE | 2022-09-15 05:01 | ED.FALL ---
HPI - Fall General Chief Complaint: Wound/Laceration <Yoel Munoz MD - Last Filed: 09/15/22 07:15> Stated Complaint: Fall <Yoel Munoz MD - Last Filed: 09/15/22 07:15> Time Seen by Provider: 09/15/22 07:37 <Yoel Munoz MD - Last Filed: 09/15/22 07:15> History of Present Illness HPI Narrative: 87-year-old white male with a PMH of complete heart block s/p pacemaker placement, HLD and prostate cancer fell getting out of bed hit his head the nightstand causing a laceration between his eyebrows without loss of consciousness. Complains of pain over the laceration between his eyebrows was forehead. Denies any numbness weakness dizziness chest pain. He has a history of chronic neck pain but his neck is not bothering him currently. He had a small skin tear over the right dorsal aspect of his hand not requiring repair. Denies any visual complaints , nausea vomiting. Denies any difficulty walking more than usual. He has a walker but does not use it often. Patient is currently living with his daughter for the past few months because his instability ambulating and possible some dementia. He stopped driving several months ago. <Yoel Munoz MD - Last Filed: 09/15/22 07:15> Related Data Home Medications: Home Medications Medication Instructions Recorded Confirmed aspirin 81 mg tablet,delayed 81 mg PO DAILY 07/05/20 09/15/22 release (Anshul Low Dose Aspirin) leuprolide (4 month) 30 mg (4 30 mg subcut ONCE 07/05/20 09/15/22 month) subcutaneous syringe (mktg) simvastatin 20 mg tablet 20 mg PO DAILY 07/05/20 09/15/22 <Yoel Munoz MD - Last Filed: 09/15/22 07:15> Allergies/Adverse Reactions: Allergies Allergy/AdvReac Type Severity Reaction Status Date / Time No Known Allergies Allergy Verified 09/06/20 13:45 <Yoel Munoz MD - Last Filed: 09/15/22 07:15> Review of Systems Constitutional: Constitutional: Reports no additional constitutional complaints <Yoel Munoz MD - Last Filed: 09/15/22 07:15> Eyes: Eyes: Reports no additional eye complaints <Yoel Munoz MD - Last Filed: 09/15/22 07:15> ENT: Reports system reviewed and no additional complaints, except as documented <Yoel Munoz MD - Last Filed: 09/15/22 07:15> Cardiovascular: Cardiovascular: Reports no additional cardiovascular complaints <Yoel Munoz MD - Last Filed: 09/15/22 07:15> Respiratory: Respiratory: Reports no additional respiratory complaints <Yoel Munoz MD - Last Filed: 09/15/22 07:15> Gastrointestinal: Gastrointestinal: Reports no additional gastrointestinal complaints <Yoel Munoz MD - Last Filed: 09/15/22 07:15> Genitourinary: Genitourinary: Reports no additional male genitourinary complaints <Yoel Munoz MD - Last Filed: 09/15/22 07:15> Musculoskeletal: Musculoskeletal: Reports no additional musculoskeletal complaints and Reports as per HPI <Yoel Munoz MD - Last Filed: 09/15/22 07:15> Integumentary/Breasts: Skin/Breast: Reports system reviewed and no additional complaints, except as docu <Yoel Munoz MD - Last Filed: 09/15/22 07:15> Neurologic: Reports system reviewed and no additional complaints, except as documented, Reports as per HPI, Denies confusion, Denies vertigo, Denies dizziness, Denies syncope, Reports headache(s), Denies focal weakness, Denies numbness and Denies weakness <Yoel Munoz MD - Last Filed: 09/15/22 07:15> Psychiatric: Psychiatric: Reports no additional psychiatric complaints <Yoel Munoz MD - Last Filed: 09/15/22 07:15> Endocrine: Endocrine: Reports no additional endocrine complaints <Yoel Munoz MD - Last Filed: 09/15/22 07:15> Hematologic/Lymphatic: Hematologic/Lymphatic: Reports no additional hematologic/lymphatic complaints <Yoel Munoz MD - Last Filed: 09/15/22 07:15> PMFSH Past Medical History Medical Histor
--- NOTE | 2022-09-15 07:17 | PC.NURSE ---
Pt sitting in w/c c daughter at side. Pt is A&O x3 and understands d/c instruction and daughter verbalized understanding on suture removal. Awaiting CT results as scanner has IT issues. Pt and family aware of wait for results. Report given to RAJIV Bennett.
[2022-09-15 08:41] VITALS: BP 128/70; PULSE 84; RESP 17; TEMP 36.8; O2SAT 98
[2022-09-15 08:54] VITALS: BP 105/80; PULSE 75; TEMP 36.8; O2SAT 100
== END 2022-09-15 09:01 | disposition home or self-care (01) ==
PROVIDERS: Emergency Provider Emergency Medicine; PCP Physician Assistant
DX: S01.81XA Laceration without foreign body of other part of head, initial encounter (principal); S09.90XA Unspecified injury of head, initial encounter; W19.XXXA Unspecified fall, initial encounter; E78.5 Hyperlipidemia, unspecified; Z85.46 Personal history of malignant neoplasm of prostate
CPT/HCPCS: 12015; 70450; 70486; 72125; 99284

== ENCOUNTER 2022-09-21 11:59 | Emergency (ER) | payer MEDICARE, OTHER, SELFPAY ==
[2022-09-21 12:10] VITALS: BP 108/70; PULSE 97; RESP 20; TEMP 36.2; O2SAT 97
--- NOTE | 2022-09-21 12:27 | ED.GENADULT ---
HPI - General Adult General Chief complaint: Wound/Laceration Stated complaint: STITCHES REMOVED Time Seen by Provider: 09/21/22 12:00 Source: patient and RN notes reviewed Mode of arrival: ambulatory Limitations: no limitations History of Present Illness HPI narrative: 3 days sutures of face Onset (ago): day(s) (3) Location: face Severity: mild Pain Consistency: other (none) Relieving factors: none Exacerbating factors: none Associated symptoms: denies other symptoms Treatments prior to arrival: none Related Data Home Medications Medication Instructions Recorded Confirmed aspirin 81 mg tablet,delayed 81 mg PO DAILY 07/05/20 09/21/22 release (Anshul Low Dose Aspirin) leuprolide (4 month) 30 mg (4 30 mg subcut ONCE 07/05/20 09/21/22 month) subcutaneous syringe ([id number]) simvastatin 20 mg tablet 20 mg PO DAILY 07/05/20 09/21/22 Allergies Allergy/AdvReac Type Severity Reaction Status Date / Time No Known Allergies Allergy Verified 09/06/20 13:45 Review of Systems Review of Systems: All systems reviewed & are unremarkable except as noted in HPI and below Constitutional: Constitutional: Reports no additional constitutional complaints Eyes: Eyes: Reports no additional eye complaints ENT: Reports system reviewed and no additional complaints, except as documented Cardiovascular: Cardiovascular: Reports no additional cardiovascular complaints Respiratory: Respiratory: Reports no additional respiratory complaints Gastrointestinal: Gastrointestinal: Reports no additional gastrointestinal complaints Musculoskeletal: Musculoskeletal: Reports no additional musculoskeletal complaints Integumentary/Breasts: Skin/Breast: Reports system reviewed and no additional complaints, except as docu Neurologic: Reports system reviewed and no additional complaints, except as documented Psychiatric: Psychiatric: Reports no additional psychiatric complaints Endocrine: Endocrine: Reports no additional endocrine complaints Hematologic/Lymphatic: Hematologic/Lymphatic: Reports no additional hematologic/lymphatic complaints Allergic/Immunologic: Allergic/Immunologic: Reports no additional allergic/immunologic complaints PMFSH Past Medical History Medical History Hyperlipidemia Prostate cancer Surgical History Surgical History H/O knee surgery H/O prostatectomy Family History Family History Father Blood disease of some type of blood disease, not leukemia. 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 He lives with 2 dogs and some cats. He has a daughter, Tanja; his son was killed in a MVA when a teen. Smoking status: Never smoker Alcohol intake: never Substance use: never Gender identity (if verbalized by the patient): Male Sexual Orientation (if Verbalized by the Patient): Straight or Heterosexual Spiritual care concerns: No Exam Const: General: healthy appearing, no acute distress and well nourished Nutritional Appearance: well nourished Orientation/consciousness: patient oriented x3 Limitations: no limitations Other: 12 cm sutured sagittal laceration of forehead to nose. HENMT: Head: normal to inspection Ears: external ears normal, TM's normal bilaterally and EAC's normal Face/Nose/Sinus: Normal external nose present, Normal nares present, normal facial exam and sinuses nontender Face and sinus: normal facial exam and sinuses nontender Mouth: Yes Normal oral and palatal mucosa present and Yes moist mucous membranes Teeth and gingiv
[2022-09-21 12:48] VITALS: BP 107/72; PULSE 94; RESP 20; TEMP 36.2; O2SAT 97
== END 2022-09-21 13:00 | disposition home or self-care (01) ==
PROVIDERS: Emergency Provider Emergency Medicine; PCP Physician Assistant
DX: S01.81XD Laceration without foreign body of other part of head, subsequent encounter (principal)
CPT/HCPCS: 99281

== ENCOUNTER 2022-10-23 22:04 | Emergency (ER) | payer MEDICARE, OTHER, SELFPAY ==
--- NOTE | ~2022-10-23 | CT_ITS ---
Non-contrast Head CT History: Altered mental status COMPARISON: 09/15/2022 Technique: Axial non-contrast imaging of the brain was performed. Dose reduction technique was used on this scan by utilizing automated exposure control and iterative reconstruction technique. The dose -length product (DLP) was 756.67 mGy-cm. Findings: There is a mixed density subdural hematoma along the high left frontoparietal convexity ishaan suring 18 mm in thickness. Collection is predominantly low-density, with small scattered areas of hyp erdense material. No mass lesion or acute infarct identified. The ventricles and subarachnoid spaces are normal in size. No definite new midline shift as compared to prior exam. The calvarium appears no rmal. The visualized paranasal sinuses and mastoid air cells are clear. 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 Reviewed, dictated and finalized at location . 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
--- NOTE | 2022-10-23 22:09 | ED.AMS ---
HPI - Altered Mental Status General Chief Complaint: Unspecified Stated Complaint: ambulance Source: patient, EMS and RN notes reviewed Mode of arrival: EMS Limitations: no limitations History of Present Illness HPI narrative: I received report from EMS and also question patient. Family reports that patient has had more confusion today and has been incontinent of urine without smelling urine as well. He has a history this in the past they think he might have a urinary tract infection. He denies any nausea or vomiting. He denies any fever chills. He denies any dysuria. daughter arrives and tells me that patient had a fall earlier in the day. She said that later on he was more confused and she was thinking he might have a urinary tract infection initially. She says that he did hit his head but there is no outward evidence of trauma. MD complaint: altered mental status and confusion Onset (ago): day(s) (Just today) Timing confirmed by: family member Severity: moderate Consistency of symptoms: constant Context: history of similar presentation Associated symptoms: foul smelling urine and incontinence Related Data Home Medications Medication Instructions Recorded Confirmed leuprolide (4 month) 30 mg (4 30 mg subcut ONCE 07/05/20 10/23/22 month) subcutaneous syringe (Branch2) simvastatin 20 mg tablet 20 mg PO DAILY 07/05/20 10/23/22 Allergies Allergy/AdvReac Type Severity Reaction Status Date / Time No Known Allergies Allergy Verified 09/06/20 13:45 Review of Systems Review of Systems: All systems reviewed & are unremarkable except as noted in HPI and below Constitutional: Constitutional: Denies chills and Denies fever(s) PMFSH Past Medical History Medical History (Updated 10/24/22 @ 02:06 by Mikel Chow MD) Hyperlipidemia Prostate cancer Surgical History Surgical History H/O knee surgery H/O prostatectomy Family History Family History Father Blood disease of some type of blood disease, not leukemia. 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 He lives with 2 dogs and some cats. He has a daughter, Tanja; his son was killed in a MVA when a teen. Smoking status: Never smoker Alcohol intake: never Substance use: never Gender identity (if verbalized by the patient): Male Sexual Orientation (if Verbalized by the Patient): Straight or Heterosexual Spiritual care concerns: No Exam Const: General: healthy appearing, no acute distress and alert Nutritional Appearance: well nourished Limitations: no limitations HENMT: Head: normal to inspection, no contusions, no hematomas and no lacerations Ears: external ears normal Face/Nose/Sinus: Normal external nose present Face and sinus: normal facial exam Mouth: Yes moist mucous membranes Eyes: Conjunctivae: conjunctivae normal Pupils: Equal, round and reactive pupils present EOM: EOMs intact bilaterally Neck: Neck: normal visual inspection Resp: Effort & Inspection: normal respiratory effort Auscultation: clear to auscultation bilaterally Cardio: Rate: regular rate Rhythm: regular rhythm GI: GI Palp: Yes Soft to palpation and No Tenderness to palpation present (GI) Auscultation: normal bowel sounds Back/Spine/Pelvis: Cervical Spine: cervical ROM normal Thoracic/Lumbar Spine: thoraco-lumbar ROM normal Skin: General skin exam: normal color Rashes: no rashes Neuro: General: moves all extremities, no focal motor deficits and CN's II-XI intact bilaterally Speech: normal speech Extrem: General: normal to inspection and no clubbing, cy
[2022-10-23 22:11] VITALS: BP 127/80; PULSE 90; RESP 20; TEMP 37.2; O2SAT 97
[2022-10-23 22:30] LABS: Basophils Absolute Auto 0.04 K/mm3 (0.00-0.10); Basophils Percent Auto 0.6 % (0.0-1.0); Eosinophils Absolute Auto 0.13 K/mm3 (0.02-0.50); Eosinophils Percent Auto 1.9 % (1.0-6.0); Hematocrit 38.6 % (37.0-46.0); Hemoglobin 12.9 g/dL (12.4-15.3); Immature Granulocyte Absolute 0.02 K/mm3 (0.00-0.00); Immature Granulocyte Percent A 0.3 % (0.0-0.0); Lymphocytes Percent Auto 17.7 % (18.0-42.0); Mean Corpuscular HGB Conc 33.4 g/dL (32.0-36.0); Mean Corpuscular Volume 95.8 fL (78.0-102.0); Mean Platelet Volume 10.5 fl (8.7-11.0); Monocytes Absolute Auto 0.89 K/mm3 (0.10-0.90); Monocytes Percent Auto 13.1 % (2.0-11.0); Neutrophils Absolute Auto 4.5 K/mm3 (1.7-7.2); Neutrophils Percent Auto 66.4 % (50.0-70.0); Platelet Count Result 165 K/mm3 (150-420); Red Blood Count 4.03 M/mm3 (4.70-6.10); Red Cell Distribution Width 13.4 % (11.6-14.4); White Blood Count 6.8 K/mm3 (4.8-10.8)
[2022-10-23 22:42] LABS: CRP 1.2 mg/dL (0.0-0.9)
[2022-10-23 22:53] LABS: Lactic Acid Reflex 1.5 mmol/L (0.4-2.0)
[2022-10-23 23:05] VITALS: BP 122/60; PULSE 80; RESP 20; O2SAT 96
[2022-10-23 23:09] LABS: Appearance Urine Clear (Clear); Bilirubin Urine 1+ (Negative); Blood Urine Negative (Negative); Glucose Urine UA Negative (Negative); Ketones Urine Negative (Negative); Leukocyte Esterase Ur Negative LEU/UL (Negative); Nitrate Urine Negative (Negative); Protein Urine Trace (Negative); Specific Grav Ur >= 1.030 (1.010-1.020); pH Urine 5.5 (5.0-8.0)
[2022-10-23 23:15] LABS: Add Urine Microscopic? YES; Bacteria Urine Trace /hpf; Color Urine Dark Yellow (Yellow); Mucus Urine Moderate /lpf; RBC Urine 0-2 /hpf (0-2); Squamous Epithelial Cell Urine Rare /hpf (Few); WBC Urine 0-3 /hpf (0-3)
[2022-10-23 23:16] LABS: Alanine Aminotransferase 19 U/L (16-63); Albumin Level 3.4 g/dL (3.4-5.0); Alkaline Phosphatase 130 U/L (46-116); Anion Gap 7 mmol/L (8-16); Aspartate Amino Transferase 21 U/L (15-37); Bilirubin,Total 0.6 mg/dL (0.00-1.00); Blood Urea Nitrogen 29 mg/dL (7-18); Calcium 8.8 mg/dL (8.5-10.1); Carbon Dioxide 25 mmol/L (21-32); Chloride 105 mmol/L (98-108); Estimated CRCL calculation 39 ml/min; Estimated Glomerular Filt Rate 52; Glucose 104 mg/dL (70-99); Osmolality Calculated 289 mOsm/kg (285-295); Potassium 4.2 mmol/L (3.5-5.1); Sodium 137 mmol/L (136-145); Total Protein 7.5 g/dL (6.4-8.2)
[2022-10-24 00:05] VITALS: BP 111/60; PULSE 90; RESP 20; O2SAT 99
[2022-10-24 02:11] VITALS: BP 111/60; PULSE 70; RESP 18; TEMP 37.2; O2SAT 96
--- NOTE | 2022-10-24 02:12 | PC.NURSE ---
0006straight cath performed, patient tolerated well
[2022-10-24 03:07] VITALS: BP 108/60; PULSE 60; RESP 20; TEMP 36.6; O2SAT 94
== END 2022-10-24 02:50 | disposition short-term general hospital (02) ==
PROVIDERS: Emergency Provider Emergency Medicine; PCP Physician Assistant
DX: S06.5X0A Traumatic subdural hemorrhage without loss of consciousness, initial encounter (principal); W19.XXXA Unspecified fall, initial encounter; E78.5 Hyperlipidemia, unspecified; Z85.46 Personal history of malignant neoplasm of prostate
CPT/HCPCS: 36415; 51701; 70450; 80053; 81001; 83605; 83735; 85025; 86140; 99285

== ENCOUNTER 2022-11-13 14:34 | Emergency (ER) | payer MEDICARE, OTHER, SELFPAY ==
--- NOTE | ~2022-11-13 | CT_ITS ---
EXAMINATION: CT brain wo con DATE: 11/13/2022 15:17 INDICATION: Altered mental status. TECHNIQUE: Computed tomography (CT) of the head was performed without intravenous contrast. The mA wa s adjusted according to patient size. Iterative reconstruction technique was employed. The dose-lengt h product was 605.33 mGy-cm. COMPARISON: Head CT 10/24/2022, 09/15/22 FINDINGS: There are scattered areas of low attenuation in the cerebral white matter, which is within normal limits for the patient's age. There is no acute ischemic infarct. There is a left frontopariet al occipital subdural hematoma that is hypodense and isodense to mcrae matter with maximum thickness o f 13 mm. There is 3 mm rightward midline shift at the foramen of Monro. The orbits are normal. There is mild mucosal thickening in the ethmoid sinuses. The mastoid air cells are normal. IMPRESSION: 1. Subacute left frontoparietal occipital subdural hematoma, stable from 10/24/2022. Reviewed, dictated and finalized at location A. ORATE TRAVEL COORDINATOR IMPRESSION: 1. Subacute left frontoparietal occipital subdural hematoma, stable from 10/24/19 23.
[2022-11-13 14:35] VITALS: BP 117/76; PULSE 88; RESP 16; TEMP 36.4; O2SAT 100
--- NOTE | 2022-11-13 14:42 | ED.GENADULT ---
HPI - General Adult General Chief complaint: Altered Mental Status Stated complaint: ambulance History of Present Illness HPI narrative: Ludwig is an 87M with a PMH of dementia, traumatic subdural hemorrhage, frequent falls and has a pacemaker (unknown cardiac condition) that presented to the ED via EMS from [facility] with weakness and AMS. He reportedly needed 3 helpers to get him up when he usually gets up with little assistance and may be confused. EMS reports that he is acting h is usual self. He is oriented to self only which makes history gathering difficult. Related Data Home Medications Medication Instructions Recorded Confirmed simvastatin 20 mg tablet 20 mg PO HS 07/05/20 11/13/22 acetaminophen 325 mg capsule 650 mg PO Q4H PRN pain 11/13/22 11/13/22 (Tylenol) cholecalciferol (vitamin D3) 25 25 mcg PO QAM 11/13/22 11/13/22 mcg (1,000 unit) tablet memantine 5 mg tablet 5 mg PO QAM 11/13/22 11/13/22 midodrine 5 mg tablet 5 mg PO TID 11/13/22 11/13/22 omeprazole 20 mg tablet,delayed 20 mg PO QAM 11/13/22 11/13/22 release Allergies Allergy/AdvReac Type Severity Reaction Status Date / Time No Known Allergies Allergy Verified 11/13/22 15:08 Review of Systems Review of Systems: All systems reviewed & are unremarkable except as noted in HPI and below PMFSH Past Medical History Medical History (Updated 11/13/22 @ 17:28 by Moose Goldberg DO) Hyperlipidemia Prostate cancer Surgical History Surgical History H/O knee surgery H/O prostatectomy Family History Family History Father Blood disease of some type of blood disease, not leukemia. 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 He lives with 2 dogs and some cats. He has a daughter, Tanja; his son was killed in a MVA when a teen. Smoking status: Never smoker Alcohol intake: never Substance use: never Living arrangements: alone Occupation/Education: retired Gender identity (if verbalized by the patient): Male Sexual Orientation (if Verbalized by the Patient): Straight or Heterosexual Spiritual care concerns: No Exam Const: General: no acute distress Nutritional Appearance: well nourished HENMT: Head: normal to inspection Ears: external ears normal Face/Nose/Sinus: Normal external nose present Face and sinus: normal facial exam Eyes: Conjunctivae: conjunctivae normal Pupils: Equal, round and reactive pupils present EOM: EOMs intact bilaterally Neck: Neck: normal visual inspection Chest: Chest palpation & inspection: normal inspection of the chest Resp: Effort & Inspection: normal respiratory effort Auscultation: clear to auscultation bilaterally Cardio: Rate: regular rate Rhythm: regular rhythm GI: Inspection: non-distended GI Palp: Yes Soft to palpation, No Tenderness to palpation present (GI) and No Guarding due to palpation present (GI) Auscultation: normal bowel sounds : General: Yes bladder normal to palpation Back/Spine/Pelvis: Back: no CVA tenderness Skin: General skin exam: normal color Neuro: General: patient oriented x3 and moves all extremities Cranial nerves: Yes Nystagmus not present Extrem: General: normal to inspection Psych: Mental Status: mental status grossly normal Course Course Emergency Course: EKG showed a ventricular paced rhythm at a pace of 80 EXAMINATION: CT brain wo con DATE: 11/13/2022 15:17 INDICATION: Altered mental status. TECHNIQUE: Computed tomography (CT) of the head was performed without intravenous contrast. The mA was adjusted according to patient size. [place]
--- NOTE | 2022-11-13 15:01 | ECG_ITS ---
Measurements Intervals [place] Rate: 80 P: 29 FL: 270 QRS: -73 QRSD: 170 T: 77 QT: 413 QTc: 477 Interpretive Statements ATRIAL SENSE- ELECTRONIC VENTRICULAR PACEMAKER BASELINE ARTIFACT- I, II, III, AVR, AVL, AVF, V1-V2 NO FURTHER INTERPRETATION IS POSSIBLE ATYPICAL ECG COMPARED TO ECG 09/07/2020 10:58:41 ELECTRONIC VENTRICULAR PACEMAKER NOW PRESENT Electronically Signed On 11-13-2022 15:38:50 VIDEOGAME TESTER by Williams Piña D.O.
[2022-11-13 15:14] LABS: Basophils Absolute Auto 0.02 K/mm3 (0.00-0.10); Basophils Percent Auto 0.2 % (0.0-1.0); Eosinophils Absolute Auto 0.14 K/mm3 (0.02-0.50); Eosinophils Percent Auto 1.7 % (1.0-6.0); Hematocrit 41.2 % (37.0-46.0); Hemoglobin 13.2 g/dL (12.4-15.3); Immature Granulocyte Absolute 0.03 K/mm3 (0.00-0.00); Immature Granulocyte Percent A 0.4 % (0.0-0.0); Lymphocytes Absolute Auto 0.55 K/mm3 (1.10-4.50); Lymphocytes Percent Auto 6.8 % (18.0-42.0); Mean Corpuscular Hemoglobin 31.2 pg (27.0-31.0); Mean Corpuscular Volume 97.4 fL (78.0-102.0); Mean Platelet Volume 10.1 fl (8.7-11.0); Monocytes Absolute Auto 0.43 K/mm3 (0.10-0.90); Monocytes Percent Auto 5.3 % (2.0-11.0); Neutrophils Percent Auto 85.6 % (50.0-70.0); Platelet Count Result 239 K/mm3 (150-420); Red Blood Count 4.23 M/mm3 (4.70-6.10); Red Cell Distribution Width 12.5 % (11.6-14.4); White Blood Count 8.1 K/mm3 (4.8-10.8)
[2022-11-13 15:36] LABS: Alanine Aminotransferase 29 U/L (16-63); Albumin Level 3.2 g/dL (3.4-5.0); Alkaline Phosphatase 135 U/L (46-116); Anion Gap 10 mmol/L (8-16); Aspartate Amino Transferase 24 U/L (15-37); Bilirubin,Total 0.9 mg/dL (0.00-1.00); Blood Urea Nitrogen 23 mg/dL (7-18); Carbon Dioxide 27 mmol/L (21-32); Chloride 107 mmol/L (98-108); Estimated CRCL calculation 30 ml/min; Estimated Glomerular Filt Rate 59; Glucose 110 mg/dL (70-99); NT Pro B Type Natriuretic Pept 253 pg/mL (0-450); Osmolality Calculated 302 mOsm/kg (285-295); Phosphorus 3.3 mg/dL (2.6-4.7); Potassium 4.2 mmol/L (3.5-5.1); Sodium 144 mmol/L (136-145); Troponin I 7.4 ng/L (0.00-60.4)
[2022-11-13 15:41] LABS: Thyroid Stimulating Hormone 1.69 uIU/mL (0.36-3.74)
[2022-11-13 15:45] VITALS: BP 130/88; PULSE 67; RESP 16; O2SAT 98
[2022-11-13 15:52] LABS: Influenza A QL RT-PCR Negative (Negative); Influenza B QL RT-PCR Negative (Negative); SARS-CoV-2 RNA PCR Negative (Negative)
[2022-11-13 15:54] LABS: RSV RNA, RT-PCR Negative (Negative)
[2022-11-13] MEDS: SODIUM CHLORIDE 0.9% IV 500 ML 999 ML IV CONT (16:19)
[2022-11-13 16:29] LABS: Bilirubin Urine 2+ (Negative); Blood Urine 1+ (Negative); Glucose Urine UA Trace (Negative); Ketones Urine Trace (Negative); Leukocyte Esterase Ur Trace LEU/UL (Negative); Nitrate Urine Positive (Negative); Protein Urine 1+ (Negative); Specific Grav Ur >= 1.030 (1.010-1.020); pH Urine 5.5 (5.0-8.0)
[2022-11-13 16:35] LABS: Add Urine Microscopic? YES; Appearance Urine Slightly Cloudy (Clear); Color Urine Dark Yellow (Yellow); RBC Urine 0-2 /hpf (0-2); Squamous Epithelial Cell Urine Few /hpf (Few)
[2022-11-13 16:36] LABS: Bacteria Urine 2+ /hpf; Mucus Urine Moderate /lpf
[2022-11-13 16:53] VITALS: BP 126/84; PULSE 73; RESP 16; TEMP 36.5; O2SAT 98
[2022-11-13 17:06] VITALS: BP 134/70; PULSE 75; RESP 16; TEMP 36.7; O2SAT 99
--- NOTE | 2022-11-16 13:07 | PC.NURSE ---
Culture report positive, antibiotic changed to Bactrim Ds 1 tablet twice daily for 7 days, #14, called into [facility] pharmacy in [place]. RN spoke with RN at nursing facility and updated her on plan of care.
== END 2022-11-13 17:35 ==
PROVIDERS: Emergency Provider Family Medicine
DX: E86.0 Dehydration (principal); N39.0 Urinary tract infection, site not specified; F03.90 Unspecified dementia, unspecified severity, without behavioral disturbance, psychotic disturbance, mood disturbance, and anxiety; E78.5 Hyperlipidemia, unspecified; Z85.46 Personal history of malignant neoplasm of prostate; Z95.0 Presence of cardiac pacemaker; Z20.822 Contact with and (suspected) exposure to COVID-19
CPT/HCPCS: 36415; 70450; 80053; 81001; 83735; 83880; 84100; 84443; 84484; 85025; 87077; 87086; 87088; 87186; 87637; 93005; 96361; 96365; 99284; J0696; J7040

== ENCOUNTER 2023-01-04 14:52 | Outpatient (NON) | payer MEDICARE, OTHER, SELFPAY ==
[2023-01-04 15:07] LABS: Basophils Absolute Auto 0.05 K/mm3 (0.00-0.10); Basophils Percent Auto 0.9 % (0.0-1.0); Eosinophils Absolute Auto 0.21 K/mm3 (0.02-0.50); Eosinophils Percent Auto 3.6 % (1.0-6.0); Hematocrit 37.5 % (37.0-46.0); Hemoglobin 12.2 g/dL (12.4-15.3); Immature Granulocyte Absolute 0.02 K/mm3 (0.00-0.00); Immature Granulocyte Percent A 0.3 % (0.0-0.0); Lymphocytes Absolute Auto 1.38 K/mm3 (1.10-4.50); Lymphocytes Percent Auto 23.8 % (18.0-42.0); Mean Corpuscular HGB Conc 32.5 g/dL (32.0-36.0); Mean Corpuscular Volume 95.4 fL (78.0-102.0); Mean Platelet Volume 10.8 fl (8.7-11.0); Monocytes Absolute Auto 0.58 K/mm3 (0.10-0.90); Neutrophils Absolute Auto 3.6 K/mm3 (1.7-7.2); Neutrophils Percent Auto 61.4 % (50.0-70.0); Platelet Count Result 200 K/mm3 (150-420); Red Blood Count 3.93 M/mm3 (4.70-6.10); Red Cell Distribution Width 14.5 % (11.6-14.4); White Blood Count 5.8 K/mm3 (4.8-10.8)
[2023-01-04 15:11] LABS: Appearance Urine Clear (Clear); Bilirubin Urine Negative (Negative); Blood Urine Negative (Negative); Color Urine Yellow (Yellow); Glucose Urine UA Negative (Negative); Ketones Urine Negative (Negative); Leukocyte Esterase Ur Negative (Negative); Nitrate Urine Negative (Negative); Protein Urine Negative (Negative); Specific Grav Ur 1.025 (1.010-1.020)
[2023-01-04 15:21] LABS: Alanine Aminotransferase 19 U/L (16-63); Albumin Level 3.2 g/dL (3.4-5.0); Alkaline Phosphatase 141 U/L (46-116); Anion Gap 4 mmol/L (8-16); Aspartate Amino Transferase 16 U/L (15-37); Bilirubin,Total 0.5 mg/dL (0.00-1.00); Blood Urea Nitrogen 26 mg/dL (7-18); Calcium 8.9 mg/dL (8.5-10.1); Carbon Dioxide 30 mmol/L (21-32); Chloride 109 mmol/L (98-108); Estimated Glomerular Filt Rate 54; Glucose 79 mg/dL (70-99); Osmolality Calculated 299 mOsm/kg (285-295); Potassium 3.9 mmol/L (3.5-5.1); Sodium 143 mmol/L (136-145); Total Protein 7.1 g/dL (6.4-8.2)
[2023-01-04 15:22] LABS: Add Urine Microscopic? NO
== END 2023-01-04 14:53 | disposition home or self-care (01) ==
LOC: CHSLAB 14:55
PROVIDERS: Visit Provider Physician Assistant
DX: R32 Unspecified urinary incontinence (principal); R11.0 Nausea
CPT/HCPCS: 36415; 80053; 81003; 85025; 87086

== ENCOUNTER 2023-05-14 11:24 | Observation (INO) | payer MEDICARE, OTHER, SELFPAY ==
--- NOTE | ~2023-05-14 | XR_ITS ---
Portable chest x-ray Comparison: 09/06/2020 Clinical History: Confusion Findings: Lungs are clear, without focal consolidation or pleural effusion. Cardiomediastinal silho uette is stable, with pacemaker device. Bones and soft tissues are unremarkable. Impression: Clear lungs. Reviewed, dictated and finalized at location . Impression: Clear lungs.
--- NOTE | ~2023-05-14 | XR_ITS ---
Left Shoulder Technique: AP and scapular Y views were obtained. Clinical History: Pain Findings: No fracture or dislocation is seen. Osseous alignment is anatomic. There is mild AC joint d egenerative change. Glenohumeral joint is intact. Soft tissues are unremarkable. Impression: Mild AC joint degenerative change. Reviewed, dictated and finalized at location . Impression: Mild AC joint degenerative change.
[2023-05-14 11:30] VITALS: BP 110/63; PULSE 59; PULSE 75; RESP 14; TEMP 36.8; O2SAT 96
--- NOTE | 2023-05-14 11:31 | ED.AMS ---
HPI - Altered Mental Status General Chief Complaint: Altered Mental Status Stated Complaint: confusion/dementia Time Seen by Provider: 05/14/23 11:26 History of Present Illness HPI narrative: Pt brought in by EMS and history provided by EMS and daughter over the phone. Pt is living with granddaughter due to him having frequent falls at home. Pt is demented and daughter says he is becoming more confused and she wants to make sure he doesn't have an infection. Pt also required a lift assist today. Pt has no complaints. alert and oriented x1. Related Data Home Medications Medication Instructions Recorded Confirmed simvastatin 20 mg tablet 20 mg PO HS 07/05/20 11/29/22 acetaminophen 325 mg capsule 650 mg PO Q4H PRN pain 11/13/22 11/29/22 (Tylenol) cholecalciferol (vitamin D3) 25 25 mcg PO QAM 11/13/22 11/29/22 mcg (1,000 unit) tablet memantine 5 mg tablet 5 mg PO QAM 11/13/22 11/29/22 midodrine 5 mg tablet 5 mg PO TID 11/13/22 11/29/22 omeprazole 20 mg tablet,delayed 20 mg PO QAM 11/13/22 11/29/22 release Allergies Allergy/AdvReac Type Severity Reaction Status Date / Time No Known Allergies Allergy Verified 01/02/23 07:28 Review of Systems Review of Systems: ROS unobtainable: Yes unobtainable due to mental status PMFSH Past Medical History Medical History (Updated 05/14/23 @ 14:02 by Maria G Rodriguez III, DO) Hyperlipidemia Prostate cancer Surgical History Surgical History H/O knee surgery H/O prostatectomy Family History Family History Father Blood disease of some type of blood disease, not leukemia. 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 He lives with 2 dogs and some cats. He has a daughter, Tanja; his son was killed in a MVA when a teen. Smoking status: Never smoker Alcohol intake: never Substance use: never Living arrangements: alone Occupation/Education: retired Gender identity (if verbalized by the patient): Male Sexual Orientation (if Verbalized by the Patient): Straight or Heterosexual Spiritual care concerns: No Exam Const: General: healthy appearing Nutritional Appearance: well nourished Limitations: altered mental status HENMT: Mouth: Yes Normal oral and palatal mucosa present Eyes: Conjunctivae: conjunctivae normal Resp: Effort & Inspection: normal respiratory effort Auscultation: clear to auscultation bilaterally Cardio: Rate: regular rate Rhythm: regular rhythm GI: GI Palp: Yes Soft to palpation Auscultation: normal bowel sounds Back/Spine/Pelvis: Back: no CVA tenderness Skin: General skin exam: normal color Rashes: no rashes Wounds: no wounds Neuro: General: moves all extremities, no meningeal signs and no focal motor deficits Speech: normal speech Extrem: General: normal to inspection and no clubbing, cyanosis or edema Psych: Attitude: cooperative Course Vital Signs Vital signs: Vital Signs Temperature 98.2 F 05/14/23 11:30 Pulse Rate 75 05/14/23 11:30 Respiratory Rate 14 05/14/23 11:30 Blood Pressure 110/63 05/14/23 11:30 Pulse Oximetry 96 05/14/23 11:30 Oxygen Delivery Room Air 05/14/23 11:30 Temperature 98.2 F 05/14/23 11:30 Pulse Rate 59 L 05/14/23 11:30 Respiratory Rate 14 05/14/23 11:30 Blood Pressure 110/63 05/14/23 11:30 Pulse Oximetry 96 05/14/23 11:30 Oxygen Delivery Room Air 05/14/23 11:30 MDM - Altered Mental Status MDM Narrative Medical decision making narrative: pt is baseline demented by more confused per daughter. will check for infections with labs and cxr and
[2023-05-14 11:47] LABS: Appearance Urine Clear (Clear); Bilirubin Urine Negative (Negative); Blood Urine 1+ (Negative); Color Urine Yellow (Yellow); Glucose Urine UA Negative (Negative); Ketones Urine Negative (Negative); Leukocyte Esterase Ur Negative LEU/UL (Negative); Nitrate Urine Negative (Negative); Protein Urine Negative (Negative)
[2023-05-14 11:55] LABS: Basophils Absolute Auto 0.03 K/mm3 (0.00-0.10); Basophils Percent Auto 0.3 % (0.0-1.0); Eosinophils Absolute Auto 0.14 K/mm3 (0.02-0.50); Eosinophils Percent Auto 1.3 % (1.0-6.0); Hematocrit 38.2 % (37.0-46.0); Hemoglobin 12.9 g/dL (12.4-15.3); Immature Granulocyte Absolute 0.04 K/mm3 (0.00-0.00); Immature Granulocyte Percent A 0.4 % (0.0-0.0); Lymphocytes Absolute Auto 1.03 K/mm3 (1.10-4.50); Lymphocytes Percent Auto 9.5 % (18.0-42.0); Mean Corpuscular HGB Conc 33.8 g/dL (32.0-36.0); Mean Corpuscular Hemoglobin 31.3 pg (27.0-31.0); Mean Corpuscular Volume 92.7 fL (78.0-102.0); Mean Platelet Volume 9.8 fl (8.7-11.0); Monocytes Absolute Auto 0.91 K/mm3 (0.10-0.90); Monocytes Percent Auto 8.4 % (2.0-11.0); Neutrophils Absolute Auto 8.7 K/mm3 (1.7-7.2); Neutrophils Percent Auto 80.1 % (50.0-70.0); Platelet Count Result 169 K/mm3 (150-420); Red Blood Count 4.12 M/mm3 (4.70-6.10); Red Cell Distribution Width 14.1 % (11.6-14.4); White Blood Count 10.9 K/mm3 (4.8-10.8)
[2023-05-14 12:07] LABS: Add Urine Microscopic? YES; Bacteria Urine 1+ /hpf; Squamous Epithelial Cell Urine Few /hpf (Few); WBC Urine None seen /hpf (0-3)
[2023-05-14 12:07] LABS: Partial Thromboplastin Time 27.1 SEC (23.90-30.70); Prothrombin Time 11.4 Seconds (9.50-12.10)
[2023-05-14 12:13] LABS: Lactic Acid Reflex 1.5 mmol/L (0.4-2.0)
[2023-05-14 12:22] LABS: Alanine Aminotransferase 40 U/L (16-63); Albumin Level 3.1 g/dL (3.4-5.0); Alkaline Phosphatase 120 U/L (46-116); Anion Gap 9 mmol/L (8-16); Aspartate Amino Transferase 61 U/L (15-37); Bilirubin,Total 1.5 mg/dL (0.00-1.00); Blood Urea Nitrogen 31 mg/dL (7-18); Calcium 8.8 mg/dL (8.5-10.1); Carbon Dioxide 25 mmol/L (21-32); Chloride 106 mmol/L (98-108); Estimated Glomerular Filt Rate 53; Glucose 103 mg/dL (70-99); Osmolality Calculated 296 mOsm/kg (285-295); Sodium 140 mmol/L (136-145); Total Protein 6.6 g/dL (6.4-8.2)
--- NOTE | 2023-05-14 12:34 | PC.NURSE ---
patient checked, was asleep on stretcher. arousable to verbal stimuli. denies pain, denies current needs.
--- NOTE | 2023-05-14 13:03 | PC.NURSE ---
patient checked, asleep on stretcher. RN continuing to attempt to get ahold of patient family for update and ride home.
--- NOTE | 2023-05-14 13:25 | PC.NURSE ---
patient daughter phoned back at this time, spoke with the Dr regarding patient results and plan.
[2023-05-14] MEDS: SODIUM CHLORIDE 0.9% IV 500 ML 999 ML IV CONT (13:45)
--- NOTE | 2023-05-14 14:09 | PC.NURSE ---
patient incontinent of bowel and bladder, cleansed prior to attempting to ambulate. patient needed increased assistance getting to standing position. stood with gait belt and shuffled bilateral feet while using walker and RN assist x 2, took several steps before having another episode of bowel incontinence. ivf infusing.
--- NOTE | 2023-05-14 14:18 | PC.NURSE ---
PT TO BE ADMITTED TO ROOM 210
--- NOTE | 2023-05-14 15:30 | ADMGEN ---
This patient, Ludwig Dahl, was admitted to 2nd Floor Room 210-2. Patient/family oriented to hospital policies and general routines including ID bracelet, bed and alarms, visiting hours, pain management, procedures, bathroom and other care routines, personal items, smoking policy, room service/diet, and visiting hours. Information on how to activate the Rapid Response Team has been discussed. Patient/Family are encouraged to report perceived risks to care and to ask questions if they do not understand what they are told or what they should do.
[2023-05-14 16:00] VITALS: BP 98/59; PULSE 64; RESP 18; TEMP 36.6; O2SAT 100
[2023-05-14 16:30] VITALS: BP 147/77; PULSE 58; RESP 18; TEMP 35.8; O2SAT 96
--- NOTE | 2023-05-14 16:45 | PC.NURSE ---
Called pt's daughter genie and left message. Called pt's brother Jeremy. Jeremy stated he was in [place] and was unable to give information regarding medications. He did give a number for the pt's granddaughter. Granddaughter, Katharine, did not answer, left message.
[2023-05-14 17:46] VITALS: BMI 27.0
--- NOTE | 2023-05-14 18:15 | PC.NURSE ---
Pt's daughter, Marleny called. She was unable to provide med list or pcp name at this time. She stated whe would call back after she gathers that information.
[2023-05-14 23:41] VITALS: BP 121/74; PULSE 68; RESP 18; TEMP 37; O2SAT 95
[2023-05-15 08:00] VITALS: BP 111/80; PULSE 64; RESP 19; TEMP 36; O2SAT 96
[2023-05-15] MEDS: MEMANTINE 5 MG TABLET PO (08:49)
[2023-05-15] MEDS: PANTOPRAZOLE 40 MG TABLET PO (08:49)
[2023-05-15] MEDS: CHOLECALCIFEROL 1,000 UNITS TABLET 1000 UNITS PO (08:49)
--- NOTE | 2023-05-15 09:58 | PM.IMHP ---
H&P: HPI History of Present Illness Date/Time: 05/15/23 09:58 Chief Complaint: increased confusion Narrative: Patient is an 87-year-old male with a past medical history of dementia, hyperlipidemia, generalized weakness, prostate cancer who presented the ED by EMS for increased confusion, frequent falls, increased weakness. Patient is a very poor historian as he is only alert x1 to himself. HPI was taken from the medical records. According to the ED note the patient was brought to the emergency room because the patient has been more confused lately. Patient does have advancing dementia and it was noted that he has been falling more lately. It was also stated that the patient needed a chair lift to get him out of bed and up today. According to the daughter the patient had this before and it was noted that he had an infection. Labs and vital signs are stable at this time. . Patient was going to be discharged out of the emergency room however he was unable to stand or walk at all. complete review of systems unable to be obtained due to patient's mental status. Patient is being admitted to the hospitalist service under observation due to unsafe discharge and inability to be mobile. Review of Systems Review of Systems: All systems reviewed & are unremarkable except as noted in HPI and below PMFSH Past Medical History Medical History Advancing dementia Hyperlipidemia Prostate cancer Surgical History Surgical History H/O knee surgery H/O prostatectomy Family History Family History Father Blood disease of some type of blood disease, not leukemia. 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 He lives with 2 dogs and some cats. He has a daughter, Tanja; his son was killed in a MVA when a teen. daughter Tanja is his surrogate decision maker and wishes for patient to be full code at this time. Smoking status: Former smoker Tobacco type: cigars Second hand tobacco smoke exposure: No Alcohol intake: former Substance use: never Living arrangements: with family Occupation/Education: retired Gender identity (if verbalized by the patient): Male Sexual Orientation (if Verbalized by the Patient): Straight or Heterosexual Spiritual care concerns: No Meds Home Medications and Allergies Home Medications Medication Instructions Recorded Confirmed Type simvastatin 20 mg tablet 20 mg PO HS 07/05/20 05/14/23 History acetaminophen 325 mg capsule 650 mg PO Q4H PRN pain 11/13/22 05/14/23 History (Tylenol) cholecalciferol (vitamin D3) 25 25 mcg PO QAM 11/13/22 05/14/23 History mcg (1,000 unit) tablet memantine 5 mg tablet 5 mg PO QAM 11/13/22 05/14/23 History omeprazole 20 mg tablet,delayed 20 mg PO QAM 11/13/22 05/14/23 History release Allergies Allergy/AdvReac Type Severity Reaction Status Date / Time No Known Allergies Allergy Verified 01/02/23 07:28 Vital Signs Vital Signs - 24 hr 05/14/23 11:30 05/14/23 11:30 05/14/23 16:00 Temperature 98.2 F 97.8 F Pulse Rate 75 59 L 64 Respiratory Rate 14 18 Blood Pressure 110/63 98/59 L Pulse Oximetry 96 100 Oxygen Delivery Room Air Room Air 05/14/23 16:30 05/14/23 23:41 05/15/23 08:00 Temperature 96.5 F L 98.6 F 96.8 F L Pulse Rate 58 L 68 64 Respiratory Rate 18 18 19 Blood Pressure 147/77 H 121/74 111/80 Pulse Oximetry 96 95 96 Oxygen Delivery Room Air Room Air Room Air Exam Narrative: General: well-nourished, weak and tired-appearing 87-year-old male, laying
[2023-05-15 16:00] VITALS: BP 108/65; PULSE 61; RESP 17; TEMP 36.4; O2SAT 96
[2023-05-15] MEDS: SIMVASTATIN 10 MG TABLET 20 MG PO (21:01)
[2023-05-15 23:59] VITALS: BP 117/65; PULSE 60; RESP 20; TEMP 37.1; O2SAT 92
[2023-05-16 07:41] VITALS: BP 117/69; PULSE 60; RESP 14; TEMP 36.2; O2SAT 95
--- NOTE | 2023-05-16 08:00 | PM.DS ---
DS: Admitting Diagnosis Discharge Date 05/16/23 0800 Admitting Diagnosis Generalized weakness, advancing dementia DS: Discharge Diagnosis Discharge Diagnosis (1) Advancing dementia: Code(s): F03.90 - Unspecified dementia, unspecified severity, without behavioral disturbance, psychotic disturbance, mood disturbance, and anxiety Status: Acute Assessment and Plan: Chronic Continue namenda Seems to be advancing Placement started A&Ox1 (2) Generalized weakness: Code(s): R53.1 - Weakness Status: Acute Assessment and Plan: Most likely related to advancing dementia Labs and imaging stable PT/OT ordered Continue to encourage activity (3) Unstable gait: Code(s): R26.81 - Unsteadiness on feet Status: Acute Assessment and Plan: PT/OT ordered Unable to follow commands Continue to reorient or lead patient to follow commands (4) Hyperlipidemia: Qualifiers: Hyperlipidemia type: mixed hyperlipidemia Qualified Code(s): E78.2 - Mixed hyperlipidemia Code(s): E78.5 - Hyperlipidemia, unspecified Status: Acute Assessment and Plan: Continue home statin Chronic and stable DS: Summary Hospital Course Hospital Course: Patient is an 87-year-old male with a past medical history of dementia, hyperlipidemia, generalized weakness, prostate cancer who presented the ED by EMS for increased confusion, frequent falls, increased weakness.? chest x-ray was performed and showed no cardiopulmonary abnormalities. UA was obtained and showed no signs of infection. PT and OT did work with the patient. Patient did start of very disoriented and not able to follow commands however is doing better. Was able to get the patient to the chair with a walker. Patient does have some pain to his left shoulder. X-ray of the shoulder does show some degenerative changes however appear stable. Tylenol and 1 dose of Toradol has been given for pain and comfort. Patient does follow commands he does know who he is. Currently patient is stable for discharge for labs and vital signs. Daughter has been given options for care. Currently patient is being discharged home due to inability to find placement for this patient. Patient is most likely a baseline mentally magaña. spoke with the daughter did tell her about the PT that is been added on to the home health. she did inquire about in-patient status however explained to her there was no reason for inpatient status as the patient is actually doing really well. Labs and vital signs are stable. She did state that the patient does go in and out and has stays where he is better than others. I did explain to her that may be on those days that he is not great to let him rest that day and the next day see if it is any better. Currently the patient is comfortable and stable. Patient is stable for discharge at this time Status at Discharge Functional status at discharge: uses cane/walker Overall status at discharge: patient is progressing back to baseline Time Spent with Patient Time attestation: Total time spent providing and/or coordinating discharge services: 54 minutes Time spent: Greater than 30 minutes Specific discharge activities: Diagnostic testing, chart review, developing a treatment plan, education, care coordination documentation, physical exam, result review Exam Narrative: General: well-nourished, weak and tired-appearing 87-year-old male, laying in bed, comfortable, NARD Neuro: awake, alert and oriented x1, speech soft and mumbly, no focal neuro deficits noted HEENMT: normocephalic, atraumatic, EOMI, sclerae anicteric, moist oral mucosa Respiratory: Clear to auscultation bilaterally without crackles, rhonchi or wheezes, nonlabored breathing Cardio: regular rate, regular rhythm with S1-S2 Abdomen: nondistended, normoactive bowel sounds, soft, nontender to palpation Ext
[2023-05-16] MEDS: PANTOPRAZOLE 40 MG TABLET PO (08:08)
[2023-05-16] MEDS: CHOLECALCIFEROL 1,000 UNITS TABLET 1000 UNITS PO (08:08)
[2023-05-16] MEDS: ACETAMINOPHEN 325 MG TABLET 650 MG PO (08:09)
[2023-05-16] MEDS: MEMANTINE 5 MG TABLET PO (08:10)
[2023-05-16] MEDS: ENOXAPARIN 40 MG/0.4 ML SYRINGE SUB-Q (08:11)
[2023-05-16] MEDS: KETOROLAC 15 MG/ML VIAL (*BKC) IV PUSH (08:47)
--- NOTE | 2023-05-16 09:46 | PC.NURSE ---
Patient given full sponge bath after breakfast. Patient unable to use utensils to get food to his mouth. Manager Technology assisted. Patient able to transfer with 2 moderate assist back from chair to bed. Patient was incontinent of both bowel and bladder upon standing. Patient cleansed and new depend applied. Patient resting comfortably at this time.
--- NOTE | 2023-05-16 11:44 | PC.NURSE ---
IV site discontinued in anticipation of discharge.
--- NOTE | 2023-05-16 15:10 | PC.NURSE ---
Discharge instructions given to patient's daughter. Daughter voiced understanding. Patient left unit in w/c accompanied by business writer and patient's daughter. Patient left hospital grounds in privately owned vehicle. Call placed to daughter to inform her that some in [facility] physicians will make house calls. Message left with return number.
--- NOTE | 2023-05-21 13:14 | PC.NURSE ---
Unable to contact for discharge call back.
== END 2023-05-16 15:10 | disposition home health service (06) ==
LOC: CHSED 14:02 → CHS2ND 14:15
PROVIDERS: Admitting Provider Internal Medicine; Emergency Provider Emergency Medicine; Visit Provider Internal Medicine
DX: R53.1 Weakness (principal); R29.6 Repeated falls; E78.5 Hyperlipidemia, unspecified; F03.90 Unspecified dementia, unspecified severity, without behavioral disturbance, psychotic disturbance, mood disturbance, and anxiety; Z85.46 Personal history of malignant neoplasm of prostate
CPT/HCPCS: 36415; 71045; 73030; 80053; 81001; 83605; 85025; 85610; 85730; 96360; 96361; 96372; 96374; 97161; 97165; 99285; A9270; G0378; J1650; J1885; J7040